=== PATIENT | female | born 1975 | race Caucasian/White ===

== ENCOUNTER 2017-01-08 15:07 | Emergency (ER) | payer BC, OTHER ==
[~2017-01-08] VITALS: Ht 167.6 cm; Wt 102.1 kg
[~2017-01-08 15:07] MED LIST: ACET-9525 PO; ALLO300T28 PO; BECL0.089 IH; FLUT1POW3 IH; FOLI1TAB19 PO; GABA-560 PO; HYDR-4452 PO; HYDR200T5 PO; IBUP-974 PO; IRON65TA10 PO; LEVO0.124 PO; LEVO750T51 PO; LISI10TA11 PO; METF850T PO; METO50TE14 PO; NITR100C7 PO; SPIMDI INH
--- NOTE | 2017-01-08 15:10 | NUR ---
Daniele wang in [facility] - 01/08/17 at 1701 by MEDDCV PATIENT AMBULATED TO ER BED 7.
[2017-01-08 15:13] VITALS: BP 126/99
[2017-01-08] MEDS ORDERED: NACL 0.9% 1,000 ML IV SCH (15:14)
[2017-01-08] MEDS ORDERED: FAMOTIDINE 20 MG/2 ML VIAL IVP ONE (15:15)
[2017-01-08] MEDS ORDERED: ONDANSETRON 4 MG/2 ML VIAL IVP ONE (15:15)
--- NOTE | 2017-01-08 15:15 | NUR ---
Daniele wang in [facility] - 01/08/17 at 1701 by MEDDCV Patient being evaluated by physician at bedside.
[2017-01-08 15:49] LABS: ANION GAP 12.9 (8-16); CARBON DIOXIDE 27.3 mmol/L (21-32); CREATININE 0.8 mg/dL (0.6-1.3); POTASSIUM 4.2 mmol/L (3.5-5.1)
[2017-01-08 15:55] LABS: ALBUMIN 4.1 g/dL (3.4-5.0); TOTAL BILIRUBIN 0.4 mg/dL (0.0-1.0); TOTAL PROTEIN, SERUM 7.3 g/dL (6.4-8.2)
[2017-01-08 15:58] LABS: BASOPHILS # (AUTO) 0.1 K/uL (0.00-0.22); BASOPHILS % (AUTO) 1.5 % (0.0-2.0); EOSINOPHILS # (AUTO) 0.1 K/uL (0-0.4); EOSINOPHILS % (AUTO) 1.6 % (0.0-4.0); HEMATOCRIT 36.1 % (36-48); HEMOGLOBIN 11.5 g/dL (12.0-16.0); LYMPHOCYTES # (AUTO) 1.4 K/uL (2.5-16.5); LYMPHOCYTES % (AUTO) 17.3 % (20.5-51.1); MEAN CORPUSCULAR HEMOGLOBIN 26 pg (27-31); MEAN CORPUSCULAR HGB CONC 32 g/dL (33-37); MEAN CORPUSCULAR VOLUME 83 fL (80-94); MONOCYTES # (AUTO) 0.2 K/uL (0.8-1.0); MONOCYTES % (AUTO) 2.3 % (1.7-9.3); NEUTROPHILS % (AUTO) 77.3 % (42.2-75.2); PLATELET COUNT (AUTO) 205 K/uL (140-450); RED BLOOD CELL COUNT(AUTO) 4.36 MIL/uL (4.20-5.40); WHITE BLOOD COUNT (AUTO) 7.8 K/uL (4.8-10.8)
[2017-01-08 15:59] LABS: APPEARANCE,URINE CLOUDY (CLEAR); BILIRUBIN,URINE NEGATIVE (NEGATIVE); BLOOD, URINE 3+ (NEGATIVE); LEUKOCYTE ESTERASE ,URINE NEGATIVE (NEGATIVE); NITRITE, URINE NEGATIVE (NEGATIVE); PROTEIN,URINE 2+ (NEGATIVE); UGLUCOSE NEGATIVE (NEGATIVE); UROBILINOGEN,URINE 0.2 EU/dL (0.2 - 1)
[2017-01-08 16:01] LABS: COLOR,URINE BLOODY (YELLOW)
[2017-01-08 16:02] LABS: BACTERIA,URINE RATE /HPF (None Seen); RBC,URINE TOO NUMEROUS TO COUN /HPF (0-5); SQUAMOUS EPITHELIAL CELL,UR 0-3 /LPF (0-3 (FEW)); WBC,URINE 0-3 /HPF (0-5)
--- NOTE | 2017-01-08 16:10 | NUR ---
PATIENT AMBULATED TO ER BED 7.
--- NOTE | 2017-01-08 16:15 | NUR ---
Patient being evaluated by physician at bedside.
--- NOTE | 2017-01-08 16:16 | NUR ---
41F BIB C/O ABDOMINAL PAIN X 4 QUADRANTS, SHARP, RADIATES TO MID BACK X 3 DAYS; ABDOMEN SOFT, PT STATES TENDER, ACTIVE BOWEL SOUNDS X 4 QUADRANTS; PT C/O NAUSEA TODAY, BUT DENIES VOMITING/DIARRHEA AT THIS TIME; A&OX4, PERRL, BL LUNG SOUNDS CLEAR, RR EVEN/UNLABORED, SKIN IS WARM/DRY/INTACT AT THIS TIME; HX: DM, HTN, ANEMIA, THYROID, RA, PANCREATITIS, CHF, FATTY LIVER. PT RESTING IN BED W/ HOB ELEVATED AND IN LOWEST POSITION; POSITIONED FOR COMFORT; ER MD MADE AWARE OF STATUS. WILL CONTINUE TO MONITOR.
--- NOTE | 2017-01-08 17:23 | NUR ---
PT TAKEN TO CT VIA W/C ACCOMPANIED BY OFFICE MACHINE PUNCH OPERATOR.
--- NOTE | 2017-01-08 17:49 | NUR ---
PT C/O ABDOMINAL PAIN 03/28 AT THIS TIME; ER MD DR. MANE NOTIFIED; VSS; RR EVEN/UNLABORED, WILL CONTINUE TO MONITOR.
[2017-01-08] MEDS ORDERED: HYDROmorphone 1 MG/ML AMP IVP ONE (17:50)
[2017-01-08 19:18] VITALS: BP 128/79
--- NOTE | 2017-01-08 19:18 | NUR ---
Patient discharged with v/s stable. Written and verbal after care instructions given and explained. Patient alert, oriented and verbalized understanding of instructions. Ambulatory with steady gait. All questions addressed prior to discharge. ID band removed. Patient advised to follow up with PMD THIS WK OR RETURN TO ER IF CONDITION WORSENS. Rx of ZOFRAN AND TYLENOL WITH CODEINE given. Patient educated on indication of medication including possible reaction and side effects. Opportunity to ask questions provided and answered.
== END 2017-01-08 19:18 | disposition home or self-care (01) ==
LOC: MED 15:07
DX: D27.1 Benign neoplasm of left ovary (principal); J45.909 Unspecified asthma, uncomplicated; I10 Essential (primary) hypertension; E11.9 Type 2 diabetes mellitus without complications; E03.9 Hypothyroidism, unspecified; M06.9 Rheumatoid arthritis, unspecified; Z88.0 Allergy status to penicillin; Z79.899 Other long term (current) drug therapy
CPT/HCPCS: 36415; 74176; 80053; 81001; 81025; 82150; 82948; 83690; 85025; 96361; 96374; 96375; 99285; J1170; J2405; J3490; J7030

== ENCOUNTER 2017-11-26 23:03 | Emergency (ER) | payer BC, OTHER ==
[~2017-11-26] VITALS: Ht 167.6 cm; Wt 108.9 kg
[~2017-11-26 23:03] MED LIST changes: +ACET-787 PO; -ACET-9525 PO; -ALLO300T28 PO; +ASPI81CT95 PO; +ATOR20TA40 PO; -BECL0.089 IH; +DOCU-299 PO; -FLUT1POW3 IH; -HYDR-4452 PO; -IBUP-974 PO; -IRON65TA10 PO; +LACT1.4C PO; -LEVO750T51 PO; +METO50TE PO; -METO50TE14 PO; +OSC500 PO; +POLY17PD46 PO; -SPIMDI INH
[2017-11-26 23:16] VITALS: BP 150/94
--- NOTE | 2017-11-26 23:45 | NUR ---
PT TAKEN TO BED 1
--- NOTE | 2017-11-26 23:45 | NUR ---
42 y/o f w/c/o Suddent onset of l upper chest pain and sob x 1999. pt states has ahd a cough x 1 mth not getting better, pt states has had any fever. pt also states norco 5 taken at 1999 for pain but pain not getting better. pt on monitor, NC on placed 2 lt. er md made aware.
[2017-11-27] MEDS ORDERED: oxyCODONE/APAP 5/325 MG 1 TAB TAB PO ONE (00:15)
[2017-11-27 00:50] LABS: BASOPHILS # (AUTO) 0.2 K/uL (0.00-0.22); BASOPHILS % (AUTO) 2.9 % (0.0-2.0); EOSINOPHILS # (AUTO) 0.2 K/uL (0-0.4); EOSINOPHILS % (AUTO) 3.6 % (0.0-4.0); HEMATOCRIT 43.1 % (36-48); HEMOGLOBIN 14.3 g/dL (12.0-16.0); LYMPHOCYTES # (AUTO) 1.4 K/uL (2.5-16.5); LYMPHOCYTES % (AUTO) 20.7 % (20.5-51.1); MEAN CORPUSCULAR HEMOGLOBIN 31 pg (27-31); MEAN CORPUSCULAR HGB CONC 33 g/dL (33-37); MEAN CORPUSCULAR VOLUME 93 fL (80-94); MONOCYTES # (AUTO) 0.8 K/uL (0.8-1.0); MONOCYTES % (AUTO) 12.8 % (1.7-9.3); PLATELET COUNT (AUTO) 163 K/uL (140-450); RED BLOOD CELL COUNT(AUTO) 4.65 MIL/uL (4.20-5.40); RED CELL DISTRIBUTION WIDTH 13.2 % (11.6-13.7); WHITE BLOOD COUNT (AUTO) 6.6 K/uL (4.8-10.8)
[2017-11-27 01:15] LABS: ANION GAP 12.9 (8-16); CREATININE 0.8 mg/dL (0.6-1.3); POTASSIUM 3.9 mmol/L (3.5-5.1)
[2017-11-27 01:21] LABS: TOTAL BILIRUBIN 0.7 mg/dL (0.0-1.0)
--- NOTE | 2017-11-27 01:31 | NUR ---
LAB CALLED FOR BNP VALUE OF BELOW 5
--- NOTE | 2017-11-27 01:35 | NUR ---
PT LYING IN BED, ON MONITOR STATES HER HAS SLIGHTLY DECREASED TO 7/10.
[2017-11-27 03:25] VITALS: BP 123/79
== END 2017-11-27 03:20 | disposition home or self-care (01) ==
LOC: MED 23:03
DX: M94.0 Chondrocostal junction syndrome [Tietze] (principal); R94.31 Abnormal electrocardiogram [ECG] [EKG]; J45.909 Unspecified asthma, uncomplicated; I50.9 Heart failure, unspecified; E11.9 Type 2 diabetes mellitus without complications; I10 Essential (primary) hypertension; E78.00 Pure hypercholesterolemia, unspecified; M06.9 Rheumatoid arthritis, unspecified; Z79.899 Other long term (current) drug therapy; Z79.82 Long term (current) use of aspirin; Z79.84 Long term (current) use of oral hypoglycemic drugs; Z88.0 Allergy status to penicillin
CPT/HCPCS: 36415; 71045; 80053; 81002; 81025; 83690; 83880; 84484; 85025; 93005; 99285

== ENCOUNTER 2018-02-03 15:16 | Emergency (ER) | payer BC, OTHER ==
[~2018-02-03] VITALS: Ht 167.6 cm; Wt 112.9 kg
[~2018-02-03 15:16] MED LIST changes: +METO-747 PO; -METO50TE PO
[2018-02-03 15:23] VITALS: BP 137/89
--- NOTE | 2018-02-03 15:30 | NUR ---
PT AMBULATES TO BED 6
--- NOTE | 2018-02-03 15:40 | NUR ---
42Y/F BIB SELF C/O MOUTH PAIN X 3 DAYS WITH NAUSEA AND DIFFICULTY SWALLOWING; DENIES V/D. PATIENT POSITIONED FOR COMFORT; HOB ELEVATED; BEDRAILS UP X2; BED DOWN. ER MD MADE AWARE OF PT STATUS.
[2018-02-03] MEDS ORDERED: HYDROcodone/APAP 5/325 MG 1 TAB TAB PO ONE (17:25)
[2018-02-03 18:32] LABS: BASOPHILS # (AUTO) 0.1 K/uL (0.00-0.22); BASOPHILS % (AUTO) 1.4 % (0.0-2.0); EOSINOPHILS # (AUTO) 0.1 K/uL (0-0.4); HEMOGLOBIN 15.3 g/dL (12.0-16.0); LYMPHOCYTES # (AUTO) 1.4 K/uL (2.5-16.5); MEAN CORPUSCULAR HEMOGLOBIN 32 pg (27-31); MEAN CORPUSCULAR HGB CONC 33 g/dL (33-37); MEAN CORPUSCULAR VOLUME 94.7 fL (80-94); MONOCYTES # (AUTO) 0.4 K/uL (0.8-1.0); MONOCYTES % (AUTO) 6.3 % (1.7-9.3); NEUTROPHILS % (AUTO) 70.3 % (42.2-75.2); PLATELET COUNT (AUTO) 168 K/uL (140-450); RED BLOOD CELL COUNT(AUTO) 4.86 MIL/uL (4.20-5.40); RED CELL DISTRIBUTION WIDTH 13.6 % (11.6-13.7); WHITE BLOOD COUNT (AUTO) 7.1 K/uL (4.8-10.8)
[2018-02-03 18:41] LABS: APPEARANCE,URINE CLEAR (CLEAR); BILIRUBIN,URINE NEGATIVE (NEGATIVE); BLOOD, URINE NEGATIVE (NEGATIVE); COLOR,URINE YELLOW (YELLOW); LEUKOCYTE ESTERASE ,URINE NEGATIVE (NEGATIVE); NITRITE, URINE NEGATIVE (NEGATIVE); UGLUCOSE NEGATIVE (NEGATIVE)
[2018-02-03 18:42] LABS: ANION GAP 13.8 (8-16); CREATININE 0.9 mg/dL (0.6-1.3); POTASSIUM 3.8 mmol/L (3.5-5.1)
[2018-02-03 18:48] LABS: ALBUMIN 4.6 g/dL (3.4-5.0)
[2018-02-03 19:27] VITALS: BP 133/88
--- NOTE | 2018-02-03 19:29 | NUR ---
Patient discharged with v/s stable. Written and verbal after care instructions given and explained. Patient alert, oriented and verbalized understanding of instructions. Ambulatory with steady gait. All questions addressed prior to discharge. ID band removed. Patient advised to follow up with PMD. Rx of DEXAMETHASONE, LIDOCAINE, CHLORHEXIDINE given. Patient educated on indication of medication including possible reaction and side effects. Opportunity to ask questions provided and answered.
== END 2018-02-03 19:29 | disposition home or self-care (01) ==
LOC: MED 15:16
DX: K12.2 Cellulitis and abscess of mouth (principal); M06.9 Rheumatoid arthritis, unspecified; G89.29 Other chronic pain; J45.909 Unspecified asthma, uncomplicated; I50.9 Heart failure, unspecified; E11.9 Type 2 diabetes mellitus without complications; I10 Essential (primary) hypertension; E07.9 Disorder of thyroid, unspecified; Z79.82 Long term (current) use of aspirin; Z79.84 Long term (current) use of oral hypoglycemic drugs; Z79.899 Other long term (current) drug therapy; Z88.0 Allergy status to penicillin
CPT/HCPCS: 36415; 71045; 71250; 80053; 81003; 81025; 85025; 85651; 86140; 87040; 99285; Q0092

== ENCOUNTER 2018-03-25 20:54 | Inpatient (IN) | payer BC, OTHER ==
[~2018-03-25] VITALS: Ht 167.6 cm; Wt 113.4 kg
[~2018-03-25 20:54] MED LIST changes: +ALEN70TA52 PO; +ESCI20TA PO; +FERR325E14 PO; +FLUT1POW3 IH; +MEX2.5; +OMEP20TC12 PO; +ONDA4TAB PO; +PRED10TA5 PO; +SPIMDI INH; +ZYL300 PO; +[UNRECOGNIZED DRUG - CODE] IV; +[UNRECOGNIZED DRUG - CODE] PO
[2018-03-25 20:58] VITALS: BP 108/85
--- NOTE | 2018-03-25 21:00 | NUR ---
TO BED # 9 AMBULATORY, REPORT GIVEN TO JACKSON SAMS.
--- NOTE | 2018-03-25 21:00 | NUR ---
42/F CAME IN W C/O RT SIDE CHEST PAIN, NONRADIAITING, NONPROVOKED X 3 DAYS. ALSO REPORTS SOB X 3 DAYS. ALL LUNG SOUNDS CBTA 18RR EVEN AND UNLABORED, SATS 99%. PT ALSO REPORTS LIZZY FLANK PAIN, DYSURIA AND FREQUENCY X 3 DAYS. DENIES HEMATURIA. PMH: FATTY LIVER, CHF, DM, HTN,
[2018-03-25] MEDS ORDERED: ASPIRIN 81 MG TAB.CHEW PO ONE (21:10)
[2018-03-25 21:59] LABS: BASOPHILS # (AUTO) 0.1 K/uL (0.00-0.22); BASOPHILS % (AUTO) 1.1 % (0.0-2.0); EOSINOPHILS # (AUTO) 0.2 K/uL (0-0.4); EOSINOPHILS % (AUTO) 2.5 % (0.0-4.0); HEMOGLOBIN 14.7 g/dL (12.0-16.0); LYMPHOCYTES # (AUTO) 2.3 K/uL (2.5-16.5); MEAN CORPUSCULAR HEMOGLOBIN 32 pg (27-31); MEAN CORPUSCULAR HGB CONC 33 g/dL (33-37); MONOCYTES # (AUTO) 0.6 K/uL (0.8-1.0); MONOCYTES % (AUTO) 6.9 % (1.7-9.3); NEUTROPHILS # (AUTO) 5.3 K/uL (1.8-7.7); NEUTROPHILS % (AUTO) 62.5 % (42.2-75.2); PLATELET COUNT (AUTO) 202 K/uL (140-450); RED BLOOD CELL COUNT(AUTO) 4.64 MIL/uL (4.20-5.40); RED CELL DISTRIBUTION WIDTH 14.8 % (11.6-13.7); WHITE BLOOD COUNT (AUTO) 8.5 K/uL (4.8-10.8)
[2018-03-25 22:17] LABS: ANION GAP 14.4 (8-16); CARBON DIOXIDE 26.4 mmol/L (21-32); POTASSIUM 3.8 mmol/L (3.5-5.1); PROTHROMBIN TIME 10.8 secs (10.8-13.4)
[2018-03-25 22:18] LABS: BILIRUBIN,URINE NEGATIVE (NEGATIVE); BLOOD, URINE 2+ (NEGATIVE); COLOR,URINE YELLOW (YELLOW); LEUKOCYTE ESTERASE ,URINE 1+ (NEGATIVE); NITRITE, URINE NEGATIVE (NEGATIVE); PH,URINE 5.5 (5.0-9.0); UGLUCOSE NEGATIVE (NEGATIVE)
[2018-03-25 22:22] LABS: ALBUMIN 4.3 g/dL (3.4-5.0); TOTAL BILIRUBIN 0.8 mg/dL (0.0-1.0)
[2018-03-25 22:24] LABS: APPEARANCE,URINE HAZY (CLEAR)
[2018-03-25 22:35] LABS: D-DIMER < 100 ng/ml (0-400)
[2018-03-25 23:51] LABS: CALCIUM OXALATE CRYSTALS,UR 30-50 /HPF (None Seen); RBC,URINE 3-10 (FEW) /HPF (0-5)
[2018-03-26] MEDS ORDERED: ONDANSETRON 4 MG/2 ML VIAL IM/IVP PRN (00:50)
[2018-03-26] MEDS ORDERED: DEXTROSE 50% 50 ML SYR IVP PRN (01:50)
[2018-03-26 02:00] VITALS: BP 131/80
[2018-03-26] MEDS ORDERED: MORPHINE SULFATE 2 MG/ML SYR IVP SCH (02:00)
[2018-03-26] MEDS: NACL 0.9% 1,000 ML IV SCH ×3 (02:00→17:30)
--- NOTE | 2018-03-26 02:00 | NUR ---
PATIENT ADMITTED TO THE UNIT FROM ER. PATIENT IS AWAKE, ALERT AND ORIENTED. AMBULATORY. NO SIGNS AND SYMPTOMS OF DISTRESS NOTED. IV SITE NOTED ON LEFT HAND, SALINE LOCKED. VITAL SIGNS STABLE. MRSA SAMPLE TAKEN. PLAN OF CARE DISCUSSED WITH PATIENT. PATIENT VERBALIZED UNDERSTANDING. BED IN LOWEST POSITION, SIDE RAILS UP AND CALL LIGHT WITHIN REACH. WILL CONTINUE TO MONITOR.
--- NOTE | 2018-03-26 02:07 | NUR ---
Patient will be admitted to care of DR NAJERA. Admited to TELE. Will go to room 112B. Belongings list completed. Report to LATRELL CRUZ.
[2018-03-26] MEDS ORDERED: cefTRIAXone 1,000 MG VIAL ONE (02:11)
[2018-03-26 02:56] LABS: BARBITURATE, URINE NEG. ng/ml (NEG <=200); BENZODIAZEPINE, URINE NEG. ng/mL (NEG <=200); CANNABINOID, URINE POS. ng/mL (NEG <=50); COCAINE, URINE NEG. ng/mL (NEG <=300); OPIATE, URINE NEG. ng/mL (NEG <=2000); PHENCYCLIDINE SCREEN,URINE NEG. ng/mL (NEG <=25)
[2018-03-26] MEDS ORDERED: METOPROLOL 25 MG TAB PO SCH (03:00)
--- NOTE | 2018-03-26 03:15 | NUR ---
CHECKED ON PATIENT. PATIENT IS ASLEEP. NO SIGNS AND SYMPTOMS OF DISTRESS NOTED. BREATHING EVEN AND UNLABORED. WILL CONTINUE TO MONITOR
[2018-03-26 04:00] VITALS: BP 121/74
[2018-03-26] MEDS: LEVOTHYROXINE 0.1 MG, LEVOTHYROXINE 0.025 MG PO SCH ×2 (05:48)
[2018-03-26] MEDS: BLOOD GLUCOSE MONITORING 1 DEV DEV FS SCH ×4 (05:50→20:38)
[2018-03-26] MEDS: MORPHINE SULFATE 2 MG/ML SYR IVP PRN ×2 (06:00→11:30)
--- NOTE | 2018-03-26 06:40 | NUR ---
PATIENT TAKEN TO RADIOLOGY FOR CT
[2018-03-26 07:05] LABS: BASOPHILS # (AUTO) 0.2 K/uL (0.00-0.22); BASOPHILS % (AUTO) 2.2 % (0.0-2.0); EOSINOPHILS # (AUTO) 0.3 K/uL (0-0.4); EOSINOPHILS % (AUTO) 3.5 % (0.0-4.0); HEMATOCRIT 41.3 % (36-48); HEMOGLOBIN 13.4 g/dL (12.0-16.0); LYMPHOCYTES # (AUTO) 2.4 K/uL (2.5-16.5); LYMPHOCYTES % (AUTO) 31.8 % (20.5-51.1); MEAN CORPUSCULAR HEMOGLOBIN 32 pg (27-31); MEAN CORPUSCULAR HGB CONC 33 g/dL (33-37); MEAN CORPUSCULAR VOLUME 97.5 fL (80-94); MONOCYTES # (AUTO) 0.6 K/uL (0.8-1.0); MONOCYTES % (AUTO) 7.4 % (1.7-9.3); NEUTROPHILS # (AUTO) 4.2 K/uL (1.8-7.7); NEUTROPHILS % (AUTO) 55.1 % (42.2-75.2); PLATELET COUNT (AUTO) 165 K/uL (140-450); RED BLOOD CELL COUNT(AUTO) 4.23 MIL/uL (4.20-5.40); RED CELL DISTRIBUTION WIDTH 14.5 % (11.6-13.7); WHITE BLOOD COUNT (AUTO) 7.6 K/uL (4.8-10.8)
[2018-03-26 07:08] LABS: ANION GAP 11.7 (8-16); CARBON DIOXIDE 27.9 mmol/L (21-32); CREATININE 0.9 mg/dL (0.6-1.3); POTASSIUM 3.6 mmol/L (3.5-5.1)
--- NOTE | 2018-03-26 07:15 | NUR ---
PATIENT RETURNED FROM RADIOLOGY
--- NOTE | 2018-03-26 07:18 | NUR ---
PATIENT REPORT GIVEN TO MORNING NURSE AT BEDSIDE FOR CONTINUITY OF CARE. PATIENT IS IN STABLE CONDITION
[2018-03-26 07:21] LABS: MAGNESIUM 1.7 mg/dL (1.8-2.4); PHOSPHORUS 4.4 mg/dL (2.5-4.9)
--- NOTE | 2018-03-26 07:30 | NUR ---
RECEIVED PT REPORT FROM CLOTH DYEING RANGE TENDER RN. PT IS AWAKE, ALERT AND ORIENTEDX4. AMBULATORY. NO SIGNS AND SYMPTOMS OF DISTRESS NOTED. IV SITE NOTED ON LEFT HAND, 20G, INFUSING WELL, ASYMPTOMATIC. VITAL SIGNS TAKEN. PLAN OF CARE DISCUSSED. PT VERBALIZED UNDERSTANDING. BED IN LOWEST POSITION, SIDE RAILS UP AND CALL LIGHT WITHIN REACH. WILL CONTINUE TO MONITOR.
[2018-03-26 08:00] VITALS: BP 116/69
[2018-03-26] MEDS ORDERED: NON-FORMULARY ITEM (Aspirin 81 MG) PO SCH (09:00)
[2018-03-26] MEDS ORDERED: NON-FORMULARY ITEM (Levothyroxine Sodium* (Synthroid*) 0.125 MG) PO SCH (09:00)
[2018-03-26] MEDS: POLYETHYLENE GLYCOL 17 GM/PKT PO SCH ×2 (09:00→09:41)
[2018-03-26] MEDS ORDERED: NON-FORMULARY ITEM (Atorvastatin Calcium 20 MG) PO SCH (09:00)
[2018-03-26] MEDS ORDERED: METHOTREXATE 2.5 MG TAB PO SCH (09:00)
[2018-03-26] MEDS ORDERED: TAMSULOSIN 0.4 MG CAP PO SCH (09:16)
[2018-03-26] MEDS: ECOTRIN 81 MG TABEC PO SCH (09:39)
[2018-03-26] MEDS: FOLIC ACID 1 MG TAB PO SCH (09:40)
[2018-03-26] MEDS: LACTOBACILLUS RHAMNOSUS GG 1 EACH CAP PO SCH (09:40)
[2018-03-26] MEDS: predniSONE 10 MG TAB PO SCH (09:40)
[2018-03-26] MEDS: metFORMIN 850 MG TAB PO SCH ×2 (09:41→20:53)
[2018-03-26] MEDS: MAGNESIUM OXIDE 400 MG TAB PO SCH ×2 (09:41→20:53)
[2018-03-26] MEDS: ESCITALOPRAM 20 MG TAB PO SCH (09:41)
[2018-03-26] MEDS: METOPROLOL SUCCINATE 50 MG TABER PO SCH (09:42)
[2018-03-26] MEDS: HYDROXYCHLOROQUINE 200 MG TAB PO SCH ×2 (09:42→20:53)
[2018-03-26] MEDS: PANTOPRAZOLE 40 MG TABEC PO SCH (09:42)
[2018-03-26] MEDS: ALLOPURINOL 300 MG TAB PO SCH (09:43)
--- NOTE | 2018-03-26 10:20 | NUR ---
PT BROUGHT MEDS FROM HOME. REPORTED TO DR RHEA. MUNROE CHANGED THE DOSAGE AND FREQ OF THE MEDS. Addendum: 03/26/18 at 1445 by Og Carcamo RN FOSAMAX, AND METHOTREXATE
[2018-03-26 12:00] VITALS: BP 120/72
--- NOTE | 2018-03-26 13:00 | NUR ---
K PAD APPLIED TO PT'S BACK
[2018-03-26] MEDS: BACLOFEN 10 MG TAB PO SCH ×2 (13:05→17:39)
--- NOTE | 2018-03-26 15:30 | NUR ---
TURNED K PAD OFF PER PT'S REQUEST.
[2018-03-26 16:00] VITALS: BP 104/84
[2018-03-26] MEDS: INSULIN LISPRO SLIDING SCALE 100 UNITS/ML VIAL SUBQ PRN ×2 (17:42→20:50)
--- NOTE | 2018-03-26 19:20 | NUR ---
ENDORSED PT TO SOIL AND PLANT SCIENTIST RN. PT IS IN STABLE CONDITION
--- NOTE | 2018-03-26 19:21 | NUR ---
PATIENT REPORT RECEIVED FROM MORNING NURSE AT BEDSIDE. PATIENT IS AWAKE, ALERT AND ORIENTED. NO SIGNS AND SYMPTOMS OF DISTRESS NOTED. NO COMPLAINTS OF PAIN AT THIS TIME. IV SITE NOTED ON LEFT HAND, IV FLUID INFUSING WELL. PATIENT'S FAMILY AT BEDSIDE. PLAN OF CARE DISCUSSED WITH PATIENT. PATIENT VERBALIZED UNDERSTANDING. BED IN LOWEST POSITION, SIDE RAILS UP AND CALL LIGHT WITHIN REACH. WILL CONTINUE TO MONITOR
[2018-03-26 20:00] VITALS: BP 114/60
[2018-03-26] MEDS: HYDROcodone/APAP 7.5/325 MG 1 TAB PO PRN (20:58)
[2018-03-26] MEDS ORDERED: GABAPENTIN 300 MG PO SCH (21:00)
[2018-03-26] MEDS ORDERED: GABAPENTIN 300 MG CAP PO SCH (21:00)
--- NOTE | 2018-03-26 21:15 | NUR ---
PATIENT REPORT GIVEN TO CHARGE NURSE FILIPE. PATIENT IS IN STABLE CONDITION
--- NOTE | 2018-03-26 21:37 | NUR ---
RECEIVED REPORT FROM NANCY SAMS.PT IS IN STABLE CONDITION.HAD PAIN AND NORCO PO GIVEN BY NANCY EARLIER.WILL REASSESS LATER.
[2018-03-27] VITALS: BP 126/62
--- NOTE | 2018-03-27 | NUR ---
VS STABLE.HR IS SR.SLEEPING W/O S/S OF ANY DISTRESS.
[2018-03-27] MEDS: NACL 0.9% 1,000 ML IV SCH ×2 (00:41→10:10)
[2018-03-27 04:00] VITALS: BP 122/60
--- NOTE | 2018-03-27 04:00 | NUR ---
SLEEPING.IVF IS IN PROGRESS.NO DISTRESS NOTED AT PRESENT TIME.CALL LIGHT WITHIN REACH.HR IS SR.
[2018-03-27] MEDS: LEVOTHYROXINE 0.1 MG, LEVOTHYROXINE 0.025 MG PO SCH ×2 (05:54)
[2018-03-27] MEDS: BLOOD GLUCOSE MONITORING 1 DEV DEV FS SCH ×2 (05:54→11:32)
[2018-03-27] MEDS ORDERED: METHOTREXATE 2.5 MG TAB PO SCH (06:00)
[2018-03-27] MEDS: HYDROcodone/APAP 7.5/325 MG 1 TAB PO PRN (06:00)
[2018-03-27] MEDS ORDERED: ALENDRONATE SODIUM 70 MG TAB PO SCH (06:00)
--- NOTE | 2018-03-27 06:42 | NUR ---
HAD C/O PAIN PO MED GIVEN ALSO DUE MEDS GIVEN.PT TLERATED WELL.IVF IS IN PROGRESS.CALL LIGHT IN REACH.HEAT PAD IS UNDER HER BACK.
[2018-03-27 07:17] LABS: BASOPHILS # (AUTO) 0.1 K/uL (0.00-0.22); BASOPHILS % (AUTO) 1.2 % (0.0-2.0); EOSINOPHILS # (AUTO) 0.2 K/uL (0-0.4); EOSINOPHILS % (AUTO) 3.7 % (0.0-4.0); HEMATOCRIT 39.5 % (36-48); LYMPHOCYTES # (AUTO) 1.7 K/uL (2.5-16.5); LYMPHOCYTES % (AUTO) 28.2 % (20.5-51.1); MEAN CORPUSCULAR HEMOGLOBIN 32 pg (27-31); MEAN CORPUSCULAR HGB CONC 33 g/dL (33-37); MONOCYTES # (AUTO) 0.4 K/uL (0.8-1.0); NEUTROPHILS # (AUTO) 3.6 K/uL (1.8-7.7); NEUTROPHILS % (AUTO) 59.9 % (42.2-75.2); PLATELET COUNT (AUTO) 144 K/uL (140-450); RED BLOOD CELL COUNT(AUTO) 4.08 MIL/uL (4.20-5.40); RED CELL DISTRIBUTION WIDTH 14.5 % (11.6-13.7)
--- NOTE | 2018-03-27 07:30 | NUR ---
RECEIVED PT REPORT FROM CHILDREN'S LITERATURE PROFESSOR RN. PT IS SLEEPING, EASILY AROUSED BY NAME, ORIENTEDX4. AMBULATORY. NO SIGNS AND SYMPTOMS OF DISTRESS NOTED. IV SITE NOTED ON LEFT HAND, 20G, INFUSING WELL, ASYMPTOMATIC. VITAL SIGNS TAKEN. PLAN OF CARE DISCUSSED. PT VERBALIZED UNDERSTANDING. BED IN LOWEST POSITION, SIDE RAILS UP AND CALL LIGHT WITHIN REACH. WILL CONTINUE TO MONITOR.
[2018-03-27 07:54] LABS: MAGNESIUM 1.7 mg/dL (1.8-2.4); PHOSPHORUS 3.5 mg/dL (2.5-4.9)
[2018-03-27 08:00] VITALS: BP 125/59
[2018-03-27 08:01] LABS: ANION GAP 12.8 (8-16); CREATININE 0.8 mg/dL (0.6-1.3); POTASSIUM 3.8 mmol/L (3.5-5.1)
[2018-03-27] MEDS ORDERED: TAMSULOSIN 0.4 MG CAP PO SCH (08:30)
[2018-03-27] MEDS: ECOTRIN 81 MG TABEC PO SCH (08:52)
[2018-03-27] MEDS: metFORMIN 850 MG TAB PO SCH (08:52)
[2018-03-27] MEDS: LACTOBACILLUS RHAMNOSUS GG 1 EACH CAP PO SCH (08:52)
[2018-03-27] MEDS: HYDROXYCHLOROQUINE 200 MG TAB PO SCH (08:53)
[2018-03-27] MEDS: ESCITALOPRAM 20 MG TAB PO SCH (08:53)
[2018-03-27] MEDS: MAGNESIUM OXIDE 400 MG TAB PO SCH (08:53)
[2018-03-27] MEDS: METOPROLOL SUCCINATE 50 MG TABER PO SCH (08:54)
[2018-03-27] MEDS: POLYETHYLENE GLYCOL 17 GM/PKT PO SCH (08:54)
[2018-03-27] MEDS: predniSONE 10 MG TAB PO SCH (08:54)
[2018-03-27] MEDS: FOLIC ACID 1 MG TAB PO SCH (08:54)
[2018-03-27] MEDS: BACLOFEN 10 MG TAB PO SCH (08:54)
[2018-03-27] MEDS: PANTOPRAZOLE 40 MG TABEC PO SCH (08:54)
[2018-03-27] MEDS: ALLOPURINOL 300 MG TAB PO SCH (08:55)
--- NOTE | 2018-03-27 09:20 | NUR ---
PT REFUSED MIRALAX, OFFERED PT WITH PRUNE JUICE. PT AGREED.
[2018-03-27] MEDS ORDERED: CARI350T PO (09:57)
[2018-03-27] MEDS ORDERED: LEVO750T2 PO (10:01)
--- NOTE | 2018-03-27 10:17 | NUR ---
PATIENT HAS BEEN SCREENED AND CATEGORIZED HIGH NUTRITION RISK. PATIENT WILL BE SEEN WITHIN 1-2 DAYS OF ADMISSION. 03/27/[address]
--- NOTE | 2018-03-27 10:35 | NUR ---
PT CAME OUT OF THE RESTROOM AND STATED SHE HAD A BM. BED LINENS WAS CHANGED. NO S/S OF ACUTE DISTRESS NOTED.
[2018-03-27 12:00] VITALS: BP 135/72
--- NOTE | 2018-03-27 12:05 | NUR ---
PT WAS DISCHARGED PER MD ORDER. DISCHARGE INSTRUCTION AND MEDICATION TEACHING PROVIDED. PT VERBALIZED UNDERSTANDING. IV CATH DC'D, TIP INTACT, PRESSURE APPLIED. PT SIGNED ALL DISCHARGE PAPER, LEFT WITH ALL HER BELONGINGS AND IN STABLE CONDITION. PT WALKED TO LOBBY WITH JULISA.
--- NOTE | 2018-03-27 15:27 | NUR ---
ATTEMPTED TO FAX CLINICAL REVIEW TO [facility] AT [phone].
[2018-03-28 06:21] LABS: T4 (THYROXINE) 7.3 ug/dL (4.5-12.0)
[2018-03-28 09:22] LABS: HEPATITIS A ANTIBODY IGM Negative (Negative); HEPATITIS B CORE AB TOTAL Negative (Negative); HEPATITIS B SURFACE ANTIBODY Non Reactive (.); HEPATITIS B SURFACE ANTIGEN Negative (Negative)
[2018-03-30 15:21] LABS: CHOL/HDL RATIO 3.7 (1-4.5); MAGNESIUM 1.9 mg/dL (1.8-2.4); PHOSPHORUS 4.8 mg/dL (2.5-4.9); THYROID STIMULATING HORMONE 0.24 uIU/mL (0.34-3.74)
== END 2018-03-27 12:05 | disposition home or self-care (01) | DRG 205 ==
LOC: MED 20:54 → MTU 03-26 00:50
PROVIDERS: ADMIT General Practice; ATTEND General Practice
DX: M94.0 Chondrocostal junction syndrome [Tietze] (principal); E43 Unspecified severe protein-calorie malnutrition; J18.9 Pneumonia, unspecified organism; N39.0 Urinary tract infection, site not specified; Z68.41 Body mass index [BMI] 40.0-44.9, adult; D68.59 Other primary thrombophilia; E11.65 Type 2 diabetes mellitus with hyperglycemia; E03.9 Hypothyroidism, unspecified; E66.9 Obesity, unspecified; Z88.0 Allergy status to penicillin; J45.909 Unspecified asthma, uncomplicated; M81.0 Age-related osteoporosis without current pathological fracture; Z98.51 Tubal ligation status; Z90.722 Acquired absence of ovaries, bilateral; Z83.3 Family history of diabetes mellitus; Z82.49 Family history of ischemic heart disease and other diseases of the circulatory system; E11.40 Type 2 diabetes mellitus with diabetic neuropathy, unspecified; R74.0 Nonspecific elevation of levels of transaminase and lactic acid dehydrogenase [LDH]; K57.90 Diverticulosis of intestine, part unspecified, without perforation or abscess without bleeding; M06.9 Rheumatoid arthritis, unspecified; F32.9 Major depressive disorder, single episode, unspecified; E78.5 Hyperlipidemia, unspecified; E83.42 Hypomagnesemia; R31.9 Hematuria, unspecified; I10 Essential (primary) hypertension; I50.9 Heart failure, unspecified
CPT/HCPCS: 36415; 71045; 71250; 74150; 76770; 80048; 80053; 80305; 81001; 81025; 82948; 83036; 83690; 83735; 83880; 84100; 84436; 84443; 84479; 84484; 85025; 85379; 85610; 85730; 86704; 86706; 86708; 86709; 86803; 87081; 87086; 87340; 93005; 99285; J0696; J1815; J2270; J7030; J7060; J7512; J8610; Q0092

== ENCOUNTER 2018-10-26 21:45 | Emergency (ER) | payer BC, OTHER ==
[~2018-10-26] VITALS: Ht 167.6 cm; Wt 111.6 kg
[~2018-10-26 21:45] MED LIST changes: -ALEN70TA52 PO; +ALEN70TA9 PO; -GABA-560 PO; -NITR100C7 PO; -[UNRECOGNIZED DRUG - CODE] IV; -[UNRECOGNIZED DRUG - CODE] PO
[2018-10-26 21:48] VITALS: BP 122/68
--- NOTE | 2018-10-26 21:51 | NUR ---
TO LOBBY A/W BED , LIV PRIEST NOTED
--- NOTE | 2018-10-26 23:02 | NUR ---
PT AMBULATED TO ER BED 03
--- NOTE | 2018-10-26 23:12 | NUR ---
PT BIB FAMILY FOR ABD PAIN AND PAIN AND PAINFULL URINATION X2 DAYS. PT REPORTS RLQ PAIN AT 8/10 THAT RADIATES TO R SIDE AND LOWER BACK ALONG WITH BURNING URNATION, URIN FREQUENCY, AND HAMATURIA. PT ALSO REPORTS NAUSEA. PT DENIES FEVER OR DIARRHEA. ER MD TO SEE PT. SIDE RAILS UP X2, HOB ELEVATED, BED IN LOWEST POSITION. WILL CONTINUE TO MONITOR. MEDHX:DMII, RA, HTN, HYPOTHYROIDISM, HF Addendum: 10/26/18 at 2322 by LALITO PT ABD IS SOFT, TENDER TO TOUCH IN RLQ, WITH BOWEL SOUNDS ACTIVE X4 QUADRANTS.
[2018-10-27] MEDS ORDERED: KETOROLAC 60 MG/2 ML VIAL IM ONE (01:00)
[2018-10-27 01:40] VITALS: BP 112/51
--- NOTE | 2018-10-27 01:41 | NUR ---
Patient discharged with v/s stable. Written and verbal after care instructions given and explained. Patient alert, oriented and verbalized understanding of instructions. Ambulatory with steady gait. All questions addressed prior to discharge. ID band removed. Patient advised to follow up with PMD. Rx of MOTRIN, PYRIDIUM, CIPRO given. Patient educated on indication of medication including possible reaction and side effects. Opportunity to ask questions provided and answered.
== END 2018-10-27 01:40 | disposition home or self-care (01) ==
LOC: MED 21:45
DX: N39.0 Urinary tract infection, site not specified (principal); J45.909 Unspecified asthma, uncomplicated; I10 Essential (primary) hypertension; E11.9 Type 2 diabetes mellitus without complications; E07.9 Disorder of thyroid, unspecified; Z88.0 Allergy status to penicillin; Z90.49 Acquired absence of other specified parts of digestive tract
CPT/HCPCS: 81002; 96372; 99283; J1885

== ENCOUNTER 2018-11-19 22:09 | Emergency (ER) | payer BC, OTHER ==
[~2018-11-19] VITALS: Ht 167.6 cm; Wt 113.2 kg
[2018-11-19 22:13] VITALS: BP 110/85
--- NOTE | 2018-11-19 22:24 | NUR ---
PT AMBULATED TO THE RESTROOM AND THEN SENT TO [facility]
[2018-11-19 23:58] LABS: BASOPHILS # (AUTO) 0.1 K/uL (0.00-0.22); BASOPHILS % (AUTO) 1.3 % (0.0-2.0); EOSINOPHILS # (AUTO) 0.3 K/uL (0-0.4); EOSINOPHILS % (AUTO) 2.7 % (0.0-4.0); HEMOGLOBIN 13.4 g/dL (12.0-16.0); LYMPHOCYTES # (AUTO) 3.1 K/uL (2.5-16.5); LYMPHOCYTES % (AUTO) 27.8 % (20.5-51.1); MEAN CORPUSCULAR HEMOGLOBIN 28 pg (27-31); MEAN CORPUSCULAR HGB CONC 33 g/dL (33-37); MEAN CORPUSCULAR VOLUME 86.8 fL (80-94); MONOCYTES # (AUTO) 0.8 K/uL (0.8-1.0); MONOCYTES % (AUTO) 6.9 % (1.7-9.3); NEUTROPHILS # (AUTO) 6.9 K/uL (1.8-7.7); NEUTROPHILS % (AUTO) 61.3 % (42.2-75.2); PLATELET COUNT (AUTO) 202 K/uL (140-450); RED BLOOD CELL COUNT(AUTO) 4.72 MIL/uL (4.20-5.40); RED CELL DISTRIBUTION WIDTH 15.7 % (11.6-13.7); WHITE BLOOD COUNT (AUTO) 11.3 K/uL (4.8-10.8)
[2018-11-20 00:08] LABS: ANION GAP 14.9 (8-16); CARBON DIOXIDE 27.2 mmol/L (21-32); CREATININE 1.1 mg/dL (0.6-1.3); POTASSIUM 4.1 mmol/L (3.5-5.1)
[2018-11-20 00:09] LABS: APPEARANCE,URINE CLOUDY (CLEAR); BILIRUBIN,URINE 1+ (NEGATIVE); BLOOD, URINE 3+ (NEGATIVE); COLOR,URINE RED (YELLOW); LEUKOCYTE ESTERASE ,URINE TRACE (NEGATIVE); NITRITE, URINE POSITIVE (NEGATIVE); PH,URINE 5.5 (5.0-9.0); UGLUCOSE TRACE (NEGATIVE)
[2018-11-20 00:14] LABS: ALBUMIN 3.9 g/dL (3.4-5.0); TOTAL BILIRUBIN 0.5 mg/dL (0.0-1.0)
[2018-11-20 00:22] LABS: CALCIUM OXALATE CRYSTALS,UR 0-10 /HPF (None Seen); RBC,URINE TOO NUMEROUS TO COUN /HPF (0-5); WBC,URINE 0-5 /HPF (0-5)
--- NOTE | 2018-11-20 00:38 | NUR ---
PT WAS WHEEL CHAIR TO BED #11
--- NOTE | 2018-11-20 00:38 | NUR ---
PT RETURNED FROM CT BY WHEEL CHAIR
--- NOTE | 2018-11-20 00:49 | NUR ---
PT BIB SELF FOR ABD PAIN/BACK PAIN/SUPRAPUBIC PAIN X3 HOURS. PT REPORTS SHARP NEEDLE LIKE PAIN AT 10/10 THAT STARTS SUPRABUBIC AND RADIATES TO ABD AND R FLANK. PT REPORTS PAINFUL URINATION AND HEMATURIA THAT STARTED YESTERDAY. VSS. ER MD TO SEE PT. WILL CONTINUE TO MONITOR. MEDHX:RA, HYPOTHYROIDISM, DM II, HTN, CHF, PANCREATITIS
[2018-11-20] MEDS ORDERED: KETOROLAC 30 MG/ML VIAL IVP ONE (01:30)
[2018-11-20] MEDS ORDERED: NACL 0.9% 1,000 ML IV ONE (01:30)
--- NOTE | 2018-11-20 03:02 | NUR ---
PT RESTING IN BED, VSS. PT REPORTS THAT PAIN HAS DECREASED TO 3/10. NS BOLUS RUNNING AT THIS TIME, PT TOLERATING WELL, NO ADVENTITIOUS BREATH SOUNDS.
[2018-11-20] MEDS ORDERED: MORPHINE SULFATE 4 MG/ML SYR IVP ONE (03:30)
[2018-11-20] MEDS ORDERED: MORPHINE SULFATE 2 MG/ML SYR ONE (03:44)
[2018-11-20 04:10] VITALS: BP 107/60
--- NOTE | 2018-11-20 04:10 | NUR ---
Patient discharged with v/s stable. Written and verbal after care instructions given and explained. Patient alert, oriented and verbalized understanding of instructions. Ambulatory with steady gait. All questions addressed prior to discharge. ID band removed. Patient advised to follow up with PMD. Rx of FLOMAX, NORCO, AND ZOFRAN given. Patient educated on indication of medication including possible reaction and side effects. Opportunity to ask questions provided and answered.
== END 2018-11-20 04:10 | disposition home or self-care (01) ==
LOC: MED 22:09
DX: N20.0 Calculus of kidney (principal); N39.0 Urinary tract infection, site not specified; I10 Essential (primary) hypertension; E11.9 Type 2 diabetes mellitus without complications; J45.909 Unspecified asthma, uncomplicated; Z88.0 Allergy status to penicillin; Z79.1 Long term (current) use of non-steroidal anti-inflammatories (NSAID); Z79.84 Long term (current) use of oral hypoglycemic drugs; Z90.49 Acquired absence of other specified parts of digestive tract; Z87.442 Personal history of urinary calculi
CPT/HCPCS: 36415; 74176; 80053; 81001; 81025; 82150; 83690; 85025; 87086; 96374; 96375; 99284; J1885; J2270; J7030

== ENCOUNTER 2018-12-19 15:58 | Emergency (ER) | payer BC, OTHER ==
[~2018-12-19] VITALS: Ht 167.6 cm; Wt 116.1 kg
[2018-12-19 16:05] VITALS: BP 142/82
--- NOTE | 2018-12-19 16:15 | NUR ---
BIB SELF AAOX 4 C/O PAINFUL PERINEUM WITH BURNING, FREQUENT URINATION SINCE TUESDAY. PER PT SHE APPLIED CREAM WITH NO RELIEF. DENIES DISCHARGE. DENIES TRAUMA OR INJURY. PT STATES NO FOUL ODOR UPON URINATING. NO N/V/D. HOB UP. BED SIDE RAILS UP X1. ON LOW BED POSITION, LOCKED. ER MADE AWARE OF PT STATUS.
--- NOTE | 2018-12-19 16:34 | NUR ---
Female Agricultural Research Technologist accompanied female patient for Pelvic Exam.
[2018-12-19 17:02] LABS: APPEARANCE,URINE CLEAR (CLEAR); BILIRUBIN,URINE NEGATIVE (NEGATIVE); BLOOD, URINE 1+ (NEGATIVE); COLOR,URINE YELLOW (YELLOW); LEUKOCYTE ESTERASE ,URINE TRACE (NEGATIVE); NITRITE, URINE POSITIVE (NEGATIVE); UGLUCOSE 3+ (NEGATIVE)
[2018-12-19 17:03] VITALS: BP 132/75
--- NOTE | 2018-12-19 17:05 | NUR ---
Patient discharged with v/s stable. Written and verbal after care instructions given and explained. Patient alert, oriented and verbalized understanding of instructions. Ambulatory with steady gait. All questions addressed prior to discharge. ID band removed. Patient advised to follow up with PMD. Rx of CLOTRIMAZOLE,CEPHALEXIN,DIFLUCAN given. Patient educated on indication of medication including possible reaction and side effects. Opportunity to ask questions provided and answered.
[2018-12-19 17:23] LABS: WBC,URINE >25 (MANY) /HPF (0-5)
== END 2018-12-19 17:05 | disposition home or self-care (01) ==
LOC: MED 15:58
DX: N76.0 Acute vaginitis (principal); N39.0 Urinary tract infection, site not specified; E11.9 Type 2 diabetes mellitus without complications; J45.909 Unspecified asthma, uncomplicated; I11.0 Hypertensive heart disease with heart failure; I50.9 Heart failure, unspecified; E07.9 Disorder of thyroid, unspecified; M06.9 Rheumatoid arthritis, unspecified; Z90.49 Acquired absence of other specified parts of digestive tract; Z98.890 Other specified postprocedural states; Z79.82 Long term (current) use of aspirin; Z79.891 Long term (current) use of opiate analgesic; Z79.84 Long term (current) use of oral hypoglycemic drugs; Z88.0 Allergy status to penicillin
CPT/HCPCS: 81001; 81025; 82948; 87086; 99283

== ENCOUNTER 2019-11-09 20:32 | Emergency (ER) | payer BC, OTHER ==
[~2019-11-09] VITALS: Ht 167.6 cm; Wt 111.6 kg
[2019-11-09 20:33] VITALS: BP 120/76
--- NOTE | 2019-11-09 20:36 | NUR ---
TO LOBBY A/W BED AMBULATORY
--- NOTE | 2019-11-09 21:06 | NUR ---
PT AMBULATED TO BED 06
--- NOTE | 2019-11-09 21:15 | NUR ---
PT 44 Y/O FEMALE BIB SELF FOR C/O CHEST PAIN PROVOKED BY COUGH. PT AAO X4. PT SATES PAIN IS 9/10 NON RADIATING AN BURNING. RESPIRATIONS ARE EVEN AND UNLABORED. PT ON NC 2L/MIN SP02 97%. PT ALSO HAS C/O 9/10 GILMORE X 1 DAY. SKIN IS WARM AND DRY TO TOUCH. DENIES N/V/D. BS ACTIVE X 4. ABD IS SOFT, ROUND AND NON-TENDER. CMS INACT. CAP REFIL <3. PT CONTINUES ON MONITOR. BED LOCKED AND IN LOWEST POSITION. MEDHX: DM, HTN, CHF, RA. ALLERGIES: LEVAQUIN, PENECILLIN
--- NOTE | 2019-11-09 21:30 | NUR ---
DR. MALONEY AT BEDSIDE.
[2019-11-09] MEDS ORDERED: KETOROLAC 30 MG/ML VIAL IM ONE (22:05)
--- NOTE | 2019-11-09 22:16 | NUR ---
PT AAO X4. PT RESTING IN BED RESPIRATIONS ARE EVEN AND UNLABORED. PT LOOKING AT PHONE. PT ON MONITOR. VSS. SKIN IS WARM AND DRY TO TOUCH. BED LOCKED AND IN LOWEST POSITION.
[2019-11-09 22:33] LABS: BASOPHILS # (AUTO) 0.2 K/uL (0.00-0.22); BASOPHILS % (AUTO) 2.5 % (0.0-2.0); EOSINOPHILS # (AUTO) 0.3 K/uL (0-0.4); EOSINOPHILS % (AUTO) 3.6 % (0.0-4.0); HEMOGLOBIN 10.8 g/dL (12.0-16.0); LYMPHOCYTES % (AUTO) 23.5 % (20.5-51.1); MEAN CORPUSCULAR HEMOGLOBIN 24 pg (27-31); MEAN CORPUSCULAR HGB CONC 32 g/dL (33-37); MEAN CORPUSCULAR VOLUME 76.6 fL (80-94); MONOCYTES # (AUTO) 0.6 K/uL (0.8-1.0); MONOCYTES % (AUTO) 7.6 % (1.7-9.3); NEUTROPHILS # (AUTO) 5.3 K/uL (1.8-7.7); NEUTROPHILS % (AUTO) 62.8 % (42.2-75.2); PLATELET COUNT (AUTO) 236 K/uL (140-450); RED BLOOD CELL COUNT(AUTO) 4.44 MIL/uL (4.20-5.40); RED CELL DISTRIBUTION WIDTH 17.6 % (11.6-13.7); WHITE BLOOD COUNT (AUTO) 8.4 K/uL (4.8-10.8)
[2019-11-09 22:49] LABS: ALBUMIN 3.6 g/dL (3.4-5.0); CARBON DIOXIDE 26.8 mmol/L (21-32); CREATININE 0.9 mg/dL (0.6-1.3); POTASSIUM 3.8 mmol/L (3.5-5.1); TOTAL BILIRUBIN 0.5 mg/dL (0.0-1.0)
[2019-11-09 23:01] LABS: CREATINE KINASE MB 0.3 ng/mL (0-3.6)
--- NOTE | 2019-11-09 23:59 | NUR ---
AMOR @ 300. DR. JIMENEZ MADE AWARE.
--- NOTE | 2019-11-10 00:15 | NUR ---
44 Y/O FEMALE PRESENTS WITH BODY ACHES/ PAIN DURING INHALATION/EXHILATION. PAIN STATES PAIN IS BURNING IN CHEST WITH BREATHS, NON RADIATING, 9/10. RESP EVEN AND UNLABORED. 2L SP02 97%. AAOX4. BOWEL SOUNDS NORMO ACTIVE IN ALL QUADRANTS. SKIN COOL/DRY. ROM IN TACT UPPER/LOWER BILAT EXTR. CAP REFILL <3. GCS 15. PMH: DM, HTN, CHF, RA, ALLERGIES: LEVAQUIN, PENECILLIN
--- NOTE | 2019-11-10 01:12 | NUR ---
PT RESTING IN BED EYES CLOSED. RESPIRATIONS ARE EVEN AND UNLABORED. PT ON 2L/MIN NC O2SAT @ 96%. SKIN IS WARM AND DRY TO TOUCH. VSS. PT ON MONITOR. PT DENIES PAIN AT THIS TIME.
[2019-11-10] MEDS ORDERED: fentaNYL 0.05 MG/ML VIAL NS ONE (02:00)
[2019-11-10] MEDS ORDERED: fentaNYL 0.05 MG/ML VIAL IVP ONE (02:00)
--- NOTE | 2019-11-10 02:49 | NUR ---
PT RESTING IN BED EYES OPEN. PT AAO X4. RESPIRATIONS ARE EVEN AND UNLABORED. PT ON 2L/MIN NC O2SAT @ 96%. SKIN IS WARM AND DRY TO TOUCH. VSS. PT ON MONITOR. PT DENIES PAIN AT THIS TIME.
[2019-11-10 03:05] VITALS: BP 117/72
--- NOTE | 2019-11-10 03:05 | NUR ---
Patient discharged with v/s stable. Written and verbal after care instructions given and explained. Patient alert, oriented and verbalized understanding of instructions. Ambulatory with steady gait. All questions addressed prior to discharge. ID band removed. Patient advised to follow up with PMD. Rx of FIORICET given. Patient educated on indication of medication including possible reaction and side effects. Opportunity to ask questions provided and answered.
== END 2019-11-10 03:05 | disposition home or self-care (01) ==
LOC: MED 20:32
DX: R07.9 Chest pain, unspecified (principal); R51 Headache; R06.02 Shortness of breath; J45.909 Unspecified asthma, uncomplicated; E11.9 Type 2 diabetes mellitus without complications; I10 Essential (primary) hypertension; E07.9 Disorder of thyroid, unspecified; Z90.49 Acquired absence of other specified parts of digestive tract; Z79.84 Long term (current) use of oral hypoglycemic drugs; Z79.899 Other long term (current) drug therapy; Z79.82 Long term (current) use of aspirin; Z88.0 Allergy status to penicillin; Z98.890 Other specified postprocedural states
CPT/HCPCS: 36415; 71045; 80053; 82550; 82553; 83690; 84484; 85025; 85379; 93005; 96372; 99285; J1885; J3010

== ENCOUNTER 2020-01-23 14:58 | Emergency (ER) | payer BC, OTHER ==
[~2020-01-23] VITALS: Ht 167.6 cm; Wt 110.2 kg
[2020-01-23 15:59] VITALS: BP 117/80
--- NOTE | 2020-01-23 16:20 | NUR ---
PT C/C RIGHT SIDED ABDOMEN RADIATING TO RIGHT FLANK . PT RATES PAIN 10/10, SHARP AND RADIATING. PT PAIN X1 , STATES "IT GETS WORSE WITH PAIN". PT STATES SHE HAS HAD THIS TYPE OF PAIN BEFORE WHEN SHE HAD PANCREATITIS. BOWEL SOUNDS ACTIVE X4. ABDOMEN DISTENDED , TENDER TO TOUCH. PT STATES HAS HX OF PANCREATITIS , ABDOMINAL HERNIA, GALLBLADDER HAS BEEN REMOVED, OVARIAN TUMOR , ASTHMA, DIABETES , HIGH CHOLESTEROL, HTN, RA. PT HAS NAUSEA , DIARRHEA x2 YESTERDAY, DENIES BLOOD IN STOOL , DENIES VOMITTING. PT STATES SHE HAS NOT TAKEN ANY MEDICATION TODAY. PT RESTING IN BED , SIDE RAIL x1. WILL CONTINUE TO MONITOR.
[2020-01-23] MEDS ORDERED: NACL 0.9% 1,000 ML IV SCH (16:31)
--- NOTE | 2020-01-23 16:41 | NUR ---
Dr. Jensen is evaluating the patient at bedside.
[2020-01-23] MEDS ORDERED: MORPHINE SULFATE 4 MG/ML SYR IVP ONE (16:45)
[2020-01-23] MEDS ORDERED: ONDANSETRON 4 MG/2 ML VIAL IVP ONE (16:45)
[2020-01-23 17:08] LABS: BASOPHILS # (AUTO) 0.3 K/uL (0.00-0.22); BASOPHILS % (AUTO) 2.4 % (0.0-2.0); EOSINOPHILS # (AUTO) 0.1 K/uL (0-0.4); HEMATOCRIT 37.2 % (36-48); HEMOGLOBIN 11.5 g/dL (12.0-16.0); LYMPHOCYTES # (AUTO) 1.7 K/uL (2.5-16.5); MEAN CORPUSCULAR HEMOGLOBIN 24 pg (27-31); MEAN CORPUSCULAR HGB CONC 31 g/dL (33-37); MEAN CORPUSCULAR VOLUME 78.6 fL (80-94); MONOCYTES # (AUTO) 0.6 K/uL (0.8-1.0); MONOCYTES % (AUTO) 4.9 % (1.7-9.3); NEUTROPHILS # (AUTO) 9.2 K/uL (1.8-7.7); NEUTROPHILS % (AUTO) 77.7 % (42.2-75.2); PLATELET COUNT (AUTO) 238 K/uL (140-450); RED BLOOD CELL COUNT(AUTO) 4.73 MIL/uL (4.20-5.40); RED CELL DISTRIBUTION WIDTH 21.1 % (11.6-13.7); WHITE BLOOD COUNT (AUTO) 11.9 K/uL (4.8-10.8)
--- NOTE | 2020-01-23 17:21 | NUR ---
PT RESTING IN BED, SIDE RAIL X1
[2020-01-23 17:25] LABS: APPEARANCE,URINE CLEAR (CLEAR); BILIRUBIN,URINE NEGATIVE (NEGATIVE); BLOOD, URINE NEGATIVE (NEGATIVE); COLOR,URINE YELLOW (YELLOW); LEUKOCYTE ESTERASE ,URINE NEGATIVE (NEGATIVE); NITRITE, URINE NEGATIVE (NEGATIVE); UGLUCOSE 3+ (NEGATIVE)
[2020-01-23 17:36] LABS: ALBUMIN 3.6 g/dL (3.4-5.0); ANION GAP 14.3 (8-16); CARBON DIOXIDE 25.7 mmol/L (21-32); CREATININE 1.2 mg/dL (0.6-1.3); TOTAL BILIRUBIN 0.4 mg/dL (0.0-1.0)
--- NOTE | 2020-01-23 17:44 | NUR ---
PT TAKEN TO CT VIA DAYDAY
--- NOTE | 2020-01-23 17:45 | NUR ---
PT RATES PAIN / , STATES " IT FEELS BETTER THAN BEFORE I GOT THE MORPHINE." PT IN BED RESTING, SIDE RAILS X1.
--- NOTE | 2020-01-23 18:01 | NUR ---
PT RETURNED FROM CT. PT RESTING COMFORTABLY IN BED , SIDE RAILS x1. PT IV NS RESTARTED. NAD NOTED. WILL CONTINUE TO MONITOR.
--- NOTE | 2020-01-23 19:21 | NUR ---
REPORT GIVEN TO ADDIS SAMS FOR CONTINUITY OF CARE.
[2020-01-23 19:52] VITALS: BP 142/78
--- NOTE | 2020-01-23 19:52 | NUR ---
Patient discharged with v/s stable. Written and verbal after care instructions given and explained. Patient alert, oriented and verbalized understanding of instructions. Ambulatory with steady gait. All questions addressed prior to discharge. ID band removed. Patient advised to follow up with PMD. Rx of PEPCID; COLACE; ZOFRAN; NORCO given. Patient educated on indication of medication including possible reaction and side effects. Opportunity to ask questions provided and answered.
== END 2020-01-23 19:52 | disposition home or self-care (01) ==
LOC: MED 14:58
DX: R10.9 Unspecified abdominal pain (principal); R11.2 Nausea with vomiting, unspecified; E11.9 Type 2 diabetes mellitus without complications; I11.0 Hypertensive heart disease with heart failure; J45.909 Unspecified asthma, uncomplicated; Z79.899 Other long term (current) drug therapy; Z79.4 Long term (current) use of insulin; Z79.84 Long term (current) use of oral hypoglycemic drugs; Z88.0 Allergy status to penicillin
CPT/HCPCS: 36415; 74176; 80053; 81003; 82150; 83690; 84703; 85025; 96361; 96374; 96375; 99284; J2270; J2405; J7030

== ENCOUNTER 2020-02-29 16:29 | Emergency (ER) | payer BC, OTHER ==
[~2020-02-29] VITALS: Ht 167.6 cm; Wt 110.2 kg
[2020-02-29 16:34] VITALS: BP 133/87
--- NOTE | 2020-02-29 16:52 | NUR ---
44/F C/O R SIDED NUMBNESS/TINGLING/PAIN TO FACE RADIATING DOWN BODY X TODAY. THE RT FACIAL NUMBNESS STARTED AT FOREHEAD AND PROGRESSED DOWN FACE WHEN SHE WOKE UP THIS AM, UNSPECIFIED TIME. THEN IN THE AFTERNOON THE SYMPTOMS PROGRESSED TO REST OR RT BODY. PT ALSO REPORTS DIZZINESS; AMB [facility] WITH STEADY GAIT. 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 HAS RT FOREHEAD TINGLING/NUMBNESS/PAIN SINCE THE SURGERY. NO FACIAL ASYMMETRY/DROOP. EQUAL RN HYPERBARIC STRENGTH BL. FULL CLEAR SPEECH, NO SLURRING OR DELAY. GCS 15, AOX4. ACCU CHECK 154 TAKES ASPIRIN PMH- HTN, HIGH CHOLESTEROL, DM, HF, RA, PANCREATITIS, GASTRITIS, HYPOTHYROIDISM, DIVERTICULOSIS, ANEMIA, DEPRESSION, ANXIETY
--- NOTE | 2020-02-29 16:52 | NUR ---
DR. PANDYA EVALUATING PT AT BEDSIDE
--- NOTE | 2020-02-29 17:03 | NUR ---
PT BACK FROM CT SCAN VIA W/C
--- NOTE | 2020-02-29 17:10 | NUR ---
ACCOUNTING ANALYST AT BEDSIDE FOR BLOOD DRAW
[2020-02-29 17:15] LABS: BASOPHILS % (AUTO) 0.4 % (0.0-2.0); EOSINOPHILS # (AUTO) 0.2 K/uL (0-0.4); EOSINOPHILS % (AUTO) 1.5 % (0.0-4.0); HEMATOCRIT 39.5 % (36-48); HEMOGLOBIN 12.5 g/dL (12.0-16.0); LYMPHOCYTES # (AUTO) 2.5 K/uL (2.5-16.5); LYMPHOCYTES % (AUTO) 21.5 % (20.5-51.1); MEAN CORPUSCULAR HEMOGLOBIN 26 pg (27-31); MEAN CORPUSCULAR HGB CONC 32 g/dL (33-37); MEAN CORPUSCULAR VOLUME 82.1 fL (80-94); MONOCYTES # (AUTO) 0.7 K/uL (0.8-1.0); MONOCYTES % (AUTO) 5.6 % (1.7-9.3); NEUTROPHILS # (AUTO) 8.4 K/uL (1.8-7.7); PLATELET COUNT (AUTO) 222 K/uL (140-450); RED BLOOD CELL COUNT(AUTO) 4.81 MIL/uL (4.20-5.40); RED CELL DISTRIBUTION WIDTH 21.5 % (11.6-13.7); WHITE BLOOD COUNT (AUTO) 11.8 K/uL (4.8-10.8)
[2020-02-29 17:30] LABS: ALBUMIN 3.8 g/dL (3.4-5.0); ANION GAP 13.8 (8-16); CARBON DIOXIDE 27.9 mmol/L (21-32); CREATININE 0.9 mg/dL (0.6-1.3); POTASSIUM 3.7 mmol/L (3.5-5.1); TOTAL BILIRUBIN 0.4 mg/dL (0.0-1.0)
--- NOTE | 2020-02-29 17:37 | NUR ---
DR PANDYA SPEAKING WITH PT AT BEDSIDE
[2020-02-29] MEDS ORDERED: HYDROcodone/APAP 5/325 MG 1 TAB TAB PO ONE (17:40)
[2020-02-29 18:05] VITALS: BP 124/76
--- NOTE | 2020-02-29 18:05 | NUR ---
Patient discharged with v/s stable. WILL BE PICKED UP BY FAMILY MEMBER. Written and verbal after care instructions given and explained. Patient verbalized understanding. Ambulatory with steady gait. All questions addressed prior to discharge. Advised to follow up with PMD.
== END 2020-02-29 18:05 | disposition home or self-care (01) ==
LOC: MED 16:29
DX: R20.2 Paresthesia of skin (principal); I11.0 Hypertensive heart disease with heart failure; J45.909 Unspecified asthma, uncomplicated; E11.9 Type 2 diabetes mellitus without complications; E07.9 Disorder of thyroid, unspecified; F41.9 Anxiety disorder, unspecified; E78.00 Pure hypercholesterolemia, unspecified; F32.89 Other specified depressive episodes; K85.90 Acute pancreatitis without necrosis or infection, unspecified; D64.9 Anemia, unspecified; Z79.899 Other long term (current) drug therapy; Z88.0 Allergy status to penicillin; Z88.2 Allergy status to sulfonamides; Z79.82 Long term (current) use of aspirin; Z79.84 Long term (current) use of oral hypoglycemic drugs
CPT/HCPCS: 36415; 70450; 80053; 85025; 99284

== ENCOUNTER 2020-10-24 20:59 | Emergency (ER) | payer BC, OTHER ==
[~2020-10-24] VITALS: Ht 167.6 cm; Wt 105.2 kg
[~2020-10-24 20:59] MED LIST changes: -ACET-787 PO; -ALEN70TA9 PO; +FOS70 PO; +HYDR-5191 PO
[2020-10-24 21:08] VITALS: BP 135/82
[2020-10-24] MEDS ORDERED: ONDANSETRON 4 MG/2 ML VIAL IVP ONE (21:30)
[2020-10-24] MEDS ORDERED: KETOROLAC 30 MG/ML VIAL IVP ONE (21:30)
[2020-10-24] MEDS ORDERED: NACL 0.9% 1,000 ML IV ONE (21:30)
[2020-10-24 21:43] LABS: APPEARANCE,URINE SL CLOUDY (CLEAR); BILIRUBIN,URINE NEGATIVE (NEGATIVE); BLOOD, URINE TRACE-I (NEGATIVE); COLOR,URINE YELLOW (YELLOW); LEUKOCYTE ESTERASE ,URINE TRACE (NEGATIVE); NITRITE, URINE NEGATIVE (NEGATIVE); UGLUCOSE 3+ (NEGATIVE)
[2020-10-24 21:45] LABS: BASOPHILS # (AUTO) 0.2 K/uL (0.00-0.22); BASOPHILS % (AUTO) 1.9 % (0.0-2.0); EOSINOPHILS # (AUTO) 0.2 K/uL (0-0.4); EOSINOPHILS % (AUTO) 2.3 % (0.0-4.0); HEMATOCRIT 42.6 % (36-48); HEMOGLOBIN 13.7 g/dL (12.0-16.0); LYMPHOCYTES # (AUTO) 2.3 K/uL (2.5-16.5); MEAN CORPUSCULAR HEMOGLOBIN 29 pg (27-31); MEAN CORPUSCULAR HGB CONC 32 g/dL (33-37); MEAN CORPUSCULAR VOLUME 90.2 fL (80-94); MONOCYTES # (AUTO) 0.6 K/uL (0.8-1.0); MONOCYTES % (AUTO) 6.6 % (1.7-9.3); NEUTROPHILS # (AUTO) 6.5 K/uL (1.8-7.7); NEUTROPHILS % (AUTO) 66.2 % (42.2-75.2); PLATELET COUNT (AUTO) 198 K/uL (140-450); RED BLOOD CELL COUNT(AUTO) 4.73 MIL/uL (4.20-5.40); RED CELL DISTRIBUTION WIDTH 14.9 % (11.6-13.7); WHITE BLOOD COUNT (AUTO) 9.9 K/uL (4.8-10.8)
[2020-10-24 21:59] LABS: ALBUMIN 3.9 g/dL (3.4-5.0); ANION GAP 12.2 (8-16); CARBON DIOXIDE 25.6 mmol/L (21-32); CREATININE 1.1 mg/dL (0.6-1.3); POTASSIUM 3.8 mmol/L (3.5-5.1); TOTAL BILIRUBIN 0.5 mg/dL (0.0-1.0)
[2020-10-24 22:02] LABS: RBC,URINE 0-5 /HPF (0-5)
[2020-10-24 22:03] LABS: YEAST,URINE Rare /HPF (None Seen)
[2020-10-24] MEDS ORDERED: cefTRIAXone 1,000 MG VIAL ONE (22:20)
[2020-10-24] MEDS ORDERED: PANTOPRAZOLE 40 MG INJ VIAL IVP ONE (22:40)
[2020-10-24 23:40] VITALS: BP 134/80
== END 2020-10-24 23:40 | disposition home or self-care (01) ==
LOC: MED 20:59
DX: N39.0 Urinary tract infection, site not specified (principal); R11.2 Nausea with vomiting, unspecified; K57.90 Diverticulosis of intestine, part unspecified, without perforation or abscess without bleeding; I11.9 Hypertensive heart disease without heart failure; E11.9 Type 2 diabetes mellitus without complications; J45.909 Unspecified asthma, uncomplicated; E07.9 Disorder of thyroid, unspecified; E78.00 Pure hypercholesterolemia, unspecified; F32.9 Major depressive disorder, single episode, unspecified; D64.9 Anemia, unspecified; Z87.19 Personal history of other diseases of the digestive system
CPT/HCPCS: 36415; 74176; 80053; 81001; 83690; 85025; 87086; 96361; 96365; 96375; 99284; C9113; J0696; J1885; J2405

== ENCOUNTER 2020-10-29 18:34 | Emergency (ER) | payer BC, OTHER ==
[~2020-10-29] VITALS: Ht 167.6 cm; Wt 106.6 kg
[~2020-10-29 18:34] MED LIST changes: -LISI10TA11 PO; +LISI10TA30 PO
[2020-10-29 18:37] VITALS: BP 122/84
--- NOTE | 2020-10-29 18:44 | NUR ---
BLOOD SUGAR AT THIS TIME: 571. MADE AWARE.
--- NOTE | 2020-10-29 19:04 | NUR ---
45 YEAR OLD FEMALE COMPLAINS OF HIGH BLOOD SUGAR. PT STATES THAT SHE HAD HIGH READING ON BLOOD SUGAR MONITOR. PT STATES SHE HAS HEADACHE AND DIZZINESS, AND URINATES OFTEN. PT STATES HAS BURNING SENSATION FOR URINE BUT ALREADY DIAGNOSED WITH UTI AND TAKING ANTIBIOTICS. PT DENIES NAUSEA, VOMITTING. PT AOX4, BREATHING EVEN AND UNLABORED, SKIN WARM AND DRY. BED IN LOWEST POSITION, LOCKED, BED RAIL UPX1. PMH - DM2, HTN, RA, CHF, HLD, HYPOTHROID ALLERGIES - PCN, LEVAQUIN
[2020-10-29] MEDS ORDERED: INSULIN REGULAR, HUMAN 100 UNIT/ML VIAL SUBQ ONE (19:05)
[2020-10-29] MEDS ORDERED: NACL 0.9% 2,000 ML IV ONE (19:05)
--- NOTE | 2020-10-29 19:14 | NUR ---
REPORT GIVEN TO CASIMIRO SAMS, TRANSFER OF CARE AT THIS TIME
--- NOTE | 2020-10-29 19:40 | NUR ---
PT ADMINISTERED 10 UNITS OF REGULAR INSULIN, BG WAS 571. SIDE RAIL X1, BED IN LOW POSITION, WILL CONTINUE TO MONITOR.
[2020-10-29] MEDS ORDERED: KETOROLAC 30 MG/ML VIAL IVP ONE (20:20)
[2020-10-29 20:26] LABS: ACETONE, SERUM NEGATIVE (NEGATIVE)
[2020-10-29 20:29] LABS: BASOPHILS # (AUTO) 0.3 K/uL (0.00-0.22); EOSINOPHILS # (AUTO) 0.2 K/uL (0-0.4); EOSINOPHILS % (AUTO) 1.8 % (0.0-4.0); HEMOGLOBIN 14.1 g/dL (12.0-16.0); LYMPHOCYTES # (AUTO) 1.7 K/uL (2.5-16.5); LYMPHOCYTES % (AUTO) 18.4 % (20.5-51.1); MEAN CORPUSCULAR HEMOGLOBIN 30 pg (27-31); MEAN CORPUSCULAR HGB CONC 33 g/dL (33-37); MEAN CORPUSCULAR VOLUME 90.3 fL (80-94); MONOCYTES # (AUTO) 0.6 K/uL (0.8-1.0); MONOCYTES % (AUTO) 6.8 % (1.7-9.3); NEUTROPHILS # (AUTO) 6.5 K/uL (1.8-7.7); PLATELET COUNT (AUTO) 181 K/uL (140-450); RED BLOOD CELL COUNT(AUTO) 4.76 MIL/uL (4.20-5.40); RED CELL DISTRIBUTION WIDTH 15.1 % (11.6-13.7); WHITE BLOOD COUNT (AUTO) 9.3 K/uL (4.8-10.8)
[2020-10-29 20:46] LABS: ANION GAP 13.5 (8-16); ASPARTATE AMINOTRANSFERASE 51 U/L (15-37); CARBON DIOXIDE 25.7 mmol/L (21-32); CHLORIDE 100 mmol/L (98-107); CREATININE 1.3 mg/dL (0.6-1.3); GFR ARICAN-AMERICAN 57 mL/min (>90); POTASSIUM 4.2 mmol/L (3.5-5.1); SODIUM SERUM 135 mmol/L (136-145); TOTAL BILIRUBIN 0.6 mg/dL (0.0-1.0); UREA NITROGEN, BLOOD 18 mg/dL (7-18)
[2020-10-29 20:48] LABS: GLUCOSE 519 mg/dL (74-106)
--- NOTE | 2020-10-29 20:56 | NUR ---
BG 398, ERMD MADE AWARE. WILL CONTINUE TO MONITOR
--- NOTE | 2020-10-29 21:51 | NUR ---
PT RESTING QUIETLY IN BED. 2ND BAG OF NS INFUSING, WILL RECHECK BG ONCE COMPLETED. NO DISTRESS NOTED OR VERBALIZED AT THIS TIME. VSS, R/R EQUAL, AND UNLABORED. SIDE RAIL X2, BED IN LOW POSITION, HOB ELEVATED. SAFETY PRECAUTIONS IN PLACE WILL CONTINUE TO MONITOR.
[2020-10-29 23:04] VITALS: BP 122/84
--- NOTE | 2020-10-29 23:04 | NUR ---
BG RECHECK AT 322. PT RESTING QUIETLY IN BED. NO DISTRESS NOTED OR VERBALIZED AT THIS TIME. VSS, R/R EQUAL, AND UNLABORED. SIDE RAIL X2, BED IN LOW POSITION, HOB ELEVATED. SAFETY PRECAUTIONS IN PLACE WILL CONTINUE TO MONITOR.
--- NOTE | 2020-10-29 23:12 | NUR ---
Patient discharged with v/s stable. Written and verbal after care instructions given and explained. Patient alert, oriented and verbalized understanding of instructions. Ambulatory with steady gait. All questions addressed prior to discharge. ID band removed. Patient advised to follow up with PMD. Rx of HUMALOG JOSE MIGUELIKPEN given. Patient educated on indication of medication including possible reaction and side effects. Opportunity to ask questions provided and answered.
== END 2020-10-29 23:12 | disposition home or self-care (01) ==
LOC: MED 18:34
DX: E11.65 Type 2 diabetes mellitus with hyperglycemia (principal); R11.0 Nausea; J45.909 Unspecified asthma, uncomplicated; E11.9 Type 2 diabetes mellitus without complications; I10 Essential (primary) hypertension; E03.9 Hypothyroidism, unspecified; Z91.14 Patient's other noncompliance with medication regimen; Z88.0 Allergy status to penicillin; Z88.1 Allergy status to other antibiotic agents; Z79.84 Long term (current) use of oral hypoglycemic drugs; Z79.82 Long term (current) use of aspirin; Z79.899 Other long term (current) drug therapy
CPT/HCPCS: 36415; 80053; 81002; 81025; 82009; 85025; 96361; 96372; 96374; 99284; J1815; J1885; J7030

== ENCOUNTER 2020-11-12 18:19 | Inpatient (IN) | payer OTHER, SELFPAY ==
[~2020-11-12] VITALS: Ht 167.6 cm; Wt 105.2 kg
[2020-11-12 18:35] VITALS: BP 147/93
--- NOTE | 2020-11-12 18:41 | NUR ---
BIBS from home with c/o ABD PAIN STARTED 1400, WITH NAUSEA, NO EMESIS EPISODES. PT STATES PAIN STARTS FROM LLQ AND LUQ AND RADIATES TO R SIDE, COMES AND GOES. 10/10 SHARP. PT COMPLAINS OF BLOOD DURING BM, DARK RED IN TOILET and hard. LAST BM: 1100. LAST GLUCOSE WAS 444 @1300. TOOK RECENT GLUCOSE 1832 @566. PMH: HTN, DM2, panc, diverticulitis, ASTHMA, RA, HLD. NO LMP. A, A, O x 4, cooperative, HOB elevated. Room air resp even and unlabored, in no acute distress, VVS Will continue to monitor and assess
--- NOTE | 2020-11-12 19:22 | NUR ---
Detailed report given to LATRELL Delarosa front end wheel loader operator. Questions answered. Meds and orders reviewed.
[2020-11-12] MEDS ORDERED: NACL 0.9% 1,000 ML IV ONE ×2 (20:00→21:15)
[2020-11-12] MEDS ORDERED: ONDANSETRON 4 MG/2 ML VIAL IVP ONE (20:00)
[2020-11-12] MEDS ORDERED: KETOROLAC 30 MG/ML VIAL IVP ONE (20:00)
--- NOTE | 2020-11-12 20:00 | NUR ---
PT CONTINUES TO C/O INTERMITTENT ABDOMINAL PAIN 10/10 W/GENERALIZED WEAKNESS. ERMD MADE AWARE.
--- NOTE | 2020-11-12 20:30 | NUR ---
20 G PLACED IN RAC, PT TOLERATED WELL.
[2020-11-12 20:34] LABS: BASOPHILS # (AUTO) 0.1 K/uL (0.00-0.22); BASOPHILS % (AUTO) 0.6 % (0.0-2.0); EOSINOPHILS % (AUTO) 0.4 % (0.0-4.0); HEMATOCRIT 39.5 % (36-48); HEMOGLOBIN 12.7 g/dL (12.0-16.0); LYMPHOCYTES # (AUTO) 1.8 K/uL (2.5-16.5); LYMPHOCYTES % (AUTO) 14.5 % (20.5-51.1); MEAN CORPUSCULAR HEMOGLOBIN 29 pg (27-31); MEAN CORPUSCULAR HGB CONC 32 g/dL (33-37); MEAN CORPUSCULAR VOLUME 90.3 fL (80-94); MONOCYTES # (AUTO) 0.5 K/uL (0.8-1.0); MONOCYTES % (AUTO) 4.1 % (1.7-9.3); NEUTROPHILS % (AUTO) 80.4 % (42.2-75.2); PLATELET COUNT (AUTO) 258 K/uL (140-450); RED BLOOD CELL COUNT(AUTO) 4.37 MIL/uL (4.20-5.40); RED CELL DISTRIBUTION WIDTH 14.6 % (11.6-13.7); WHITE BLOOD COUNT (AUTO) 12.5 K/uL (4.8-10.8)
[2020-11-12 20:58] LABS: ALBUMIN 3.5 g/dL (3.4-5.0); ANION GAP 15.8 (8-16); CARBON DIOXIDE 24.6 mmol/L (21-32); CREATININE 1.1 mg/dL (0.6-1.3); POTASSIUM 4.4 mmol/L (3.5-5.1); TOTAL BILIRUBIN 0.3 mg/dL (0.0-1.0)
[2020-11-12] MEDS ORDERED: INSULIN REGULAR, HUMAN 100 UNIT/ML VIAL IVP ONE (21:15)
[2020-11-12] MEDS ORDERED: NACL 0.9% 2,000 ML IV ONE (21:15)
[2020-11-12] MEDS ORDERED: MORPHINE SULFATE 4 MG/ML SYR ONE (21:28)
--- NOTE | 2020-11-12 21:41 | NUR ---
PT MEDICATED WITH 4MG MORPHINE IVP, FOR 10/10 ABDOMINAL PAIN, TOLERATED WELL. WILL CONTINUE TO MONITOR.
--- NOTE | 2020-11-12 21:51 | NUR ---
PT RETURN FROM CT
--- NOTE | 2020-11-12 22:00 | NUR ---
PT RESTING IN BED QUIETLY. STATES HER PAIN IS RESOLVING SINCE BEING ADMINISTERED PAIN MEDS. VSS, R/R EQUAL, AND UNLABORED. HOB ELEVATED, BED IN LOW POSITION, SIDE RAIL X2 WILL CONTINUE TO MONITOR.
[2020-11-12] MEDS ORDERED: MORPHINE SULFATE 4 MG/ML SYR IVP ONE (22:25)
[2020-11-12] MEDS ORDERED: MEROPENEM 1,000 MG in NACL 0.9% 100 ML IV ONE (22:30)
[2020-11-12] MEDS ORDERED: MEROPENEM 1,000 MG VIAL IV ONE (22:53)
--- NOTE | 2020-11-12 23:08 | NUR ---
PT RESTING IN BED QUIETLY. VSS, R/R EQUAL, AND UNLABORED. HOB ELEVATED, BED IN LOW POSITION, SIDE RAIL X2 WILL CONTINUE TO MONITOR.
[2020-11-12] MEDS: NACL 0.9% 1,000 ML IV SCH (23:10)
[2020-11-12] MEDS ORDERED: DEXTROSE 50% 50 ML SYR IVP PRN (23:10)
[2020-11-12] MEDS ORDERED: ACETAMINOPHEN 325 MG TAB PO PRN (23:10)
[2020-11-12] MEDS: MORPHINE SULFATE 4 MG/ML SYR IVP PRN (23:48)
--- NOTE | 2020-11-13 00:15 | NUR ---
PT RESTING IN BED QUIETLY. VSS, R/R EQUAL, AND UNLABORED. HOB ELEVATED, BED IN LOW POSITION, SIDE RAIL X2 WILL CONTINUE TO MONITOR.
--- NOTE | 2020-11-13 00:15 | NUR ---
Note randalcami in ED - 11/13/20 at 0027 by MEDWQ PT RESTING IN BED QUIETLY. STATES HER PAIN IS RESOLVING SINCE BEING ADMINISTERED PAIN MEDS. VSS, R/R EQUAL, AND UNLABORED. HOB ELEVATED, BED IN LOW POSITION, SIDE RAIL X2 WILL CONTINUE TO MONITOR.
[2020-11-13] MEDS ORDERED: PRED10TA5 PO (00:36)
--- NOTE | 2020-11-13 01:18 | NUR ---
Patient will be admitted to care of DR. BORRERO. Admited to MED SURG. Will go to room 125 B. Belongings list completed. Report to LATRELL IQBAL.
[2020-11-13 01:30] VITALS: BP 133/83
--- NOTE | 2020-11-13 01:30 | NUR ---
RECEIVED PT FROM ER TRANSPORTER VIA WHEELCHAIR. PT IS AWAKE AND ALERT, A&OX4. STEADY GAIT. ON RA WITH BREATHING UNLABORED. ABDOMEN ROUND AND SOFT. PAIN IN THE MEDIAL ABDOMEN AT A SCALE OF 6/10. WILL MEDICATE SHORTLY. SKIN IS WARM, DRY, AND SOFT. IV IS PATENT AND FLUSHING. ON NS FLUIDS AT 80 ML PER HOUR PER ORDER. PT IS STABLE AT THIS TIME. SPEAKING APPROPRIATELY, ANSWERING ALL QUESTIONS. PLAN OF CARE DISCUSSED.
[2020-11-13] MEDS: HYDROcodone/APAP 5/325 MG 1 TAB TAB PO PRN ×5 (02:21→21:23)
--- NOTE | 2020-11-13 02:21 | NUR ---
NORCO WAS GIVEN FOR PAIN IN THE ABDOMEN AT A SCALE OF 6/10. PT STATES PAIN IS ACHING IN THE MEDIAL ABDOMEN AND RADIATES OUTWARD. BP WAS 133/63 PRIOR TO ADMINISTRATION.
--- NOTE | 2020-11-13 03:30 | NUR ---
RT AT BEDSIDE PLACING PT ON CPAP FOR SLEEP APNEA. CPAP REQUESTED BY PT SHE STATES SHE WEARS IT AT HOME TO SLEEP DAILY. PT IS STABLE. BREATHING IS UNLABORED. NO RESPIRATORY DISTRESS NOTED.
[2020-11-13 04:00] VITALS: BP 130/81
[2020-11-13 05:49] LABS: BASOPHILS # (AUTO) 0.3 K/uL (0.00-0.22); BASOPHILS % (AUTO) 2.4 % (0.0-2.0); EOSINOPHILS # (AUTO) 0.3 K/uL (0-0.4); EOSINOPHILS % (AUTO) 2.9 % (0.0-4.0); HEMATOCRIT 36.7 % (36-48); HEMOGLOBIN 11.7 g/dL (12.0-16.0); LYMPHOCYTES # (AUTO) 1.6 K/uL (2.5-16.5); LYMPHOCYTES % (AUTO) 14.5 % (20.5-51.1); MEAN CORPUSCULAR HEMOGLOBIN 29 pg (27-31); MEAN CORPUSCULAR HGB CONC 32 g/dL (33-37); MEAN CORPUSCULAR VOLUME 91.1 fL (80-94); MONOCYTES # (AUTO) 0.8 K/uL (0.8-1.0); MONOCYTES % (AUTO) 7.4 % (1.7-9.3); NEUTROPHILS # (AUTO) 8.3 K/uL (1.8-7.7); NEUTROPHILS % (AUTO) 72.8 % (42.2-75.2); PLATELET COUNT (AUTO) 220 K/uL (140-450); RED BLOOD CELL COUNT(AUTO) 4.03 MIL/uL (4.20-5.40); RED CELL DISTRIBUTION WIDTH 14.8 % (11.6-13.7); WHITE BLOOD COUNT (AUTO) 11.3 K/uL (4.8-10.8)
[2020-11-13] MEDS ORDERED: MEROPENEM 500 MG VIAL IV ONE (05:59)
[2020-11-13] MEDS: LEVOTHYROXINE 0.025 MG TAB PO SCH (06:05)
[2020-11-13] MEDS: MORPHINE SULFATE 2 MG/ML SYR IVP PRN (06:05)
[2020-11-13] MEDS: ONDANSETRON 4 MG/2 ML VIAL IVP PRN ×3 (06:05→12:49)
--- NOTE | 2020-11-13 06:05 | NUR ---
PT WAS GIVEN ZOFRAN FOR NAUSEA/VOMITING. PT HAD TWO EPISODES OF A SMALL AMOUNT OF EMESIS. CLEAR IN COLOR AND THIN CONSISTENCY. WILL MONITOR FOR VOMITING.
--- NOTE | 2020-11-13 06:05 | NUR ---
PT STATES SHE HAS PAIN AT A SCALE OF 8/10 IN THE ABDOMEN- MEDIAL. PAIN IS ACHING IN SENSATION. BP WAS 151/96 PRIOR TO ADMINISTERING MORPHINE IVP FOR PAIN. WILL MONITOR PAIN.
[2020-11-13] MEDS: BLOOD GLUCOSE MONITORING 1 DEV DEV FS SCH ×4 (06:06→21:19)
[2020-11-13] MEDS: MEROPENEM 1,000 MG in NACL 0.9% 100 ML IV SCH ×3 (06:06→21:03)
[2020-11-13] MEDS: INSULIN LISPRO SLIDING SCALE 100 UNITS/ML VIAL SUBQ PRN ×4 (06:08→21:29)
[2020-11-13 06:38] LABS: ALBUMIN 2.9 g/dL (3.4-5.0); CARBON DIOXIDE 27.1 mmol/L (21-32); POTASSIUM 4.1 mmol/L (3.5-5.1); TOTAL BILIRUBIN 0.3 mg/dL (0.0-1.0)
--- NOTE | 2020-11-13 07:20 | NUR ---
ENDORSED PT TO DAY SHIFT NURSE FOR CONTINUITY OF CARE. PT IS STABLE AT THIS TIME, RESTING IN SEMI FOWLERS POSITION. PLAN OF CARE DISCUSSED.
--- NOTE | 2020-11-13 07:35 | NUR ---
RECEIVED PT A/O X4. VERBALIZED ABDOMINAL PAIN. 10/10 PAIN SCALE. PT VOMITED, 100 ML OF GREEN VOMITUS. ON RA, NO S/S OF SOB. PERIPHERAL IV INTACT WITH NS RUNNING AT 80 ML/HR. PT IS AFEBRILE. BRP. POC DISCUSSED AND REVIEWED WITH CHRONOMETER ASSEMBLER RN. WILL CONTINUE TO MONITOR.
[2020-11-13 08:00] VITALS: BP 152/93
--- NOTE | 2020-11-13 08:33 | NUR ---
PATIENT HAS BEEN SCREENED AND CATEGORIZED MODERATE NUTRITION RISK. RECEIVED A REFERRAL FOR UNCONTROLLED DIABETES WHICH IS A MODERATE RISK FACTOR. PATIENT WILL BE SEEN WITHIN 3-5 DAYS OF ADMISSION. 11/15/20 11/17/[address]
[2020-11-13] MEDS: allopurinoL 300 MG TAB PO SCH (08:34)
[2020-11-13] MEDS: lisinopriL 20 MG TAB PO SCH (08:34)
[2020-11-13] MEDS: ESCITALOPRAM 20 MG TAB PO SCH (08:34)
[2020-11-13] MEDS: PANTOPRAZOLE 40 MG TABEC PO SCH (08:35)
[2020-11-13] MEDS: DOCUSATE SODIUM 100 MG GELCAP PO SCH ×2 (08:35→21:03)
[2020-11-13] MEDS: ASPIRIN 81 MG TAB.CHEW PO SCH (08:35)
[2020-11-13] MEDS: ATORVASTATIN 20 MG TAB PO SCH (08:35)
[2020-11-13] MEDS: ENOXAPARIN 40 MG/0.4 ML SYR SUBQ SCH (08:37)
[2020-11-13] MEDS: METOPROLOL SUCCINATE 50 MG TABER PO SCH (08:38)
--- NOTE | 2020-11-13 09:57 | NUR ---
PT IS RESTING AND CALM. EYES CLOSED. NO S/S OF DISCOMFORT. NO S/S OF NAUSEA OR VOMITING.
--- NOTE | 2020-11-13 10:28 | NUR ---
SOCIAL WORK NOTE: Patient's Orientation Unable To Assess Information Provided By SUAD STAFFORD - Comments SW WAS UNABLE TO MEET PATIENT AT BEDSIDE. SW COMPLETED ASSESSMENT WITH PATIENT'S . Mushroom Cutter, Realtionship and Phone Number SUAD OBREGON [phone] Healthcare Power of Corporate Pilot No Does Patient Have a POLST No Identifying Problems No Social Work Triggers Is A Social Work Consult Needed No Mandate Report Filed No Explanation Of Identifying Problems PATIENT IS A 45-YEAR-OLD FEMALE ADMITTED FOR SIGMOID DIVERTICULITIS. PATIENT HAS PMHX OF ASTHMA, CARDIAC DISORDERS, DIABETES, HYPERTENSION. Admitted From Home Pre-Admission Level Of Functioning Status Independent/Ambulatory Prior Resources/Services Used In Last 12 Months No Prior Resources Used Prior DME No Prior DME Used Dialysis Comments N/A Living Situation Lives With Family House Patient Had Caregiver No Home Support No Caregiver Issues Financial Issues No Known Financial Issue Referral To The Financial Counselor Needed No Factors/Needs No D/C Needs Identified Pt/Rep Participated In Discharge Plan Yes Patient/Family Agress With Discharge Plan Yes Discharge Plan Comments TENTATIVE DISCHARGE PLAN IS FOR PATIENT TO RETURN HOME. DC Plan Status Initiated
--- NOTE | 2020-11-13 12:24 | NUR ---
DISCHARGE PLANNING: THIS IS A 45 Y/O FEMALE PATIENT FROM HOME, WHO CAME IN DUE TO SUDDEN ONSET SUPRAPUBIC ABDOMINAL PAIN. PAST MEDICAL HISTORY INCLUDE ASTHMA, CARDIAC DISORDERS, DIABETES, HTN AND HYPOTHYROIDISM. INITIAL DIAGNOSIS OF SIGMOID DIVERTICULITIS, UNCONTROLLED DM. CURRENT LABS INCLUDE WBC 11.3, H/H 11.7/36.7, NA/K 142/4.1, BUN/CREA 16/1.0. RAPID COVID TEST NEGATIVE. ON MEROPENEM. NO CONSULTS AT THIS TIME, NOT SEEN BY ATTENDING YET. DC PLAN BACK TO HOME ONCE STABLE.
[2020-11-13] MEDS: NACL 0.9% 1,000 ML IV SCH ×2 (12:39→22:55)
--- NOTE | 2020-11-13 12:52 | NUR ---
PT DEMONSTRATED ABDOMINAL PAIN. 10/10 PAIN SCALE. PAIN MED GIVEN. PAIN INCREASES WHEN TURNING AND EXERTION.
[2020-11-13 16:00] VITALS: BP 136/85
--- NOTE | 2020-11-13 17:00 | NUR ---
INFORMED PT ON SURGICAL CONSULTATION ( DR. ASIF ). PT EXPERIENCED INTERMITTENT ABDOMINAL PAIN.
--- NOTE | 2020-11-13 19:22 | NUR ---
ENDORSED PT TO BELLSTAND ATTENDANT RN. POC DISCUSSED AND REVIEWED FOR CONTINUITY OF CARE.
--- NOTE | 2020-11-13 19:30 | NUR ---
REPORT Report obtained from day shift and this nruse assume care til 0730. Recieved patient awake during the evening shift. no c/o pain or discomfort.
[2020-11-13 20:00] VITALS: BP 118/77
[2020-11-13] MEDS: INSULIN LANTUS 100 UNITS/ML 10 ML VIAL SUBQ SCH (21:27)
--- NOTE | 2020-11-14 00:30 | NUR ---
PATIENT TOLERATED CPAP FROM @2227 TO @0030. PT COMPLAINED OF FEELING CLAUSTROPHOBIC.
[2020-11-14] MEDS: ONDANSETRON 4 MG/2 ML VIAL IVP PRN (00:37)
[2020-11-14] MEDS: MORPHINE SULFATE 2 MG/ML SYR IVP PRN (00:38)
[2020-11-14] MEDS: HYDROcodone/APAP 5/325 MG 1 TAB TAB PO PRN ×2 (03:08→21:35)
--- NOTE | 2020-11-14 03:10 | NUR ---
PATIENT CARE Medicated for pain and nausea with Ondansetron 4 mg IVP and Morphine 2 mg at 0038 with relief of nausea and pain. [place] given at 0308. IV NS at 80 ml/dhr. IVPB [place] q8h. VSS. afeb.
[2020-11-14 04:00] VITALS: BP 123/73
[2020-11-14] MEDS: MEROPENEM 1,000 MG in NACL 0.9% 100 ML IV SCH ×3 (05:48→21:25)
[2020-11-14] MEDS: BLOOD GLUCOSE MONITORING 1 DEV DEV FS SCH ×4 (05:52→21:30)
[2020-11-14] MEDS: MORPHINE SULFATE 4 MG/ML SYR IVP PRN ×2 (06:04→10:49)
[2020-11-14] MEDS: LEVOTHYROXINE 0.025 MG TAB PO SCH (06:25)
[2020-11-14] MEDS: INSULIN LISPRO SLIDING SCALE 100 UNITS/ML VIAL SUBQ PRN ×3 (06:27→21:37)
--- NOTE | 2020-11-14 07:00 | NUR ---
PATIENT CARE Medicated for pain with Morphine 4 mg at 0604. Accucheck AC & HS. HS BG 278 and AM BG 250. Given insulin as ordered. Patient had cpap until 0030 and refused any further during the night.
--- NOTE | 2020-11-14 07:30 | NUR ---
REPORT AND ENDORSEMENT Report given to [facility] nurse Almazan to assume care of patient. Still having pain. Morphine IVP and [place] given. VSS. Afeb.
--- NOTE | 2020-11-14 08:19 | NUR ---
Patient continues to complain of Abdominal pain and rating pain at 10/10. Patient has been given Morphine and [place] and has had no relief. Notified Dr Casper and awaiting call back to see if surgical intervention is needed.
[2020-11-14 08:35] VITALS: BP 149/91
[2020-11-14] MEDS: ENOXAPARIN 40 MG/0.4 ML SYR SUBQ SCH (09:00)
[2020-11-14] MEDS: ESCITALOPRAM 20 MG TAB PO SCH (09:48)
[2020-11-14] MEDS: METOPROLOL SUCCINATE 50 MG TABER PO SCH (09:48)
[2020-11-14] MEDS: ASPIRIN 81 MG TAB.CHEW PO SCH (09:48)
[2020-11-14] MEDS: ATORVASTATIN 20 MG TAB PO SCH (09:49)
[2020-11-14] MEDS: PANTOPRAZOLE 40 MG TABEC PO SCH (09:49)
[2020-11-14] MEDS: allopurinoL 300 MG TAB PO SCH (09:49)
[2020-11-14] MEDS: lisinopriL 20 MG TAB PO SCH (09:50)
[2020-11-14] MEDS: DOCUSATE SODIUM 100 MG GELCAP PO SCH ×2 (09:52→21:25)
--- NOTE | 2020-11-14 13:49 | NUR ---
Medical error reported to Yessi Reyes. Patient was having an increased pain at night and during the day with medication intervention not working. Sent message to Dr Casper to see if Patient could be placed on NPO status just in case a surgical procedure was indicated. No response was given immediately but when text messages were checked there was an order to do Small Bowel Series" this nurse went ahead and ordered the bowel series. The order was apparently in question to a different patient per surgeon. Incident report was written and Dr Elaine was notified and awaiting further instructions. Patient alert, oriented and has no issues at the moment.
[2020-11-14 14:37] LABS: BASOPHILS # (AUTO) 0.1 K/uL (0.00-0.22); BASOPHILS % (AUTO) 0.5 % (0.0-2.0); EOSINOPHILS # (AUTO) 0.1 K/uL (0-0.4); EOSINOPHILS % (AUTO) 0.3 % (0.0-4.0); HEMATOCRIT 43.9 % (36-48); LYMPHOCYTES % (AUTO) 4.8 % (20.5-51.1); MEAN CORPUSCULAR HEMOGLOBIN 29 pg (27-31); MEAN CORPUSCULAR HGB CONC 32 g/dL (33-37); MEAN CORPUSCULAR VOLUME 90.9 fL (80-94); MONOCYTES # (AUTO) 1.6 K/uL (0.8-1.0); MONOCYTES % (AUTO) 7.6 % (1.7-9.3); NEUTROPHILS % (AUTO) 86.8 % (42.2-75.2); PLATELET COUNT (AUTO) 243 K/uL (140-450); RED BLOOD CELL COUNT(AUTO) 4.83 MIL/uL (4.20-5.40); RED CELL DISTRIBUTION WIDTH 15.3 % (11.6-13.7); WHITE BLOOD COUNT (AUTO) 20.7 K/uL (4.8-10.8)
[2020-11-14 14:38] LABS: HEMOGLOBIN 14.1 g/dL (12.0-16.0)
[2020-11-14] MEDS: NACL 0.9% 1,000 ML IV SCH (16:59)
[2020-11-14 20:00] VITALS: BP 122/71
[2020-11-14] MEDS: INSULIN LANTUS 100 UNITS/ML 10 ML VIAL SUBQ SCH (21:24)
--- NOTE | 2020-11-15 00:13 | NUR ---
PT REFUSED CPAP FOR TONLATRELL TREVINO NOTIFIED.
[2020-11-15] MEDS: NACL 0.9% 1,000 ML IV SCH ×2 (01:32→14:11)
[2020-11-15 04:00] VITALS: BP 114/83
[2020-11-15] MEDS ORDERED: MEROPENEM 1,000 MG VIAL IV ONE (05:15)
[2020-11-15] MEDS: MEROPENEM 1,000 MG in NACL 0.9% 100 ML IV SCH ×2 (05:20→14:10)
[2020-11-15] MEDS: LEVOTHYROXINE 0.025 MG TAB PO SCH (06:11)
[2020-11-15] MEDS: INSULIN LISPRO SLIDING SCALE 100 UNITS/ML VIAL SUBQ PRN ×2 (06:15→17:00)
[2020-11-15] MEDS: BLOOD GLUCOSE MONITORING 1 DEV DEV FS SCH ×3 (07:30→16:58)
--- NOTE | 2020-11-15 08:02 | NUR ---
Patient noted to be sleeping and breathing non labored. Bed lowered, bed side stable nearby and has no further needs.
[2020-11-15 08:40] VITALS: BP 119/80
[2020-11-15] MEDS: ENOXAPARIN 40 MG/0.4 ML SYR SUBQ SCH (09:38)
[2020-11-15] MEDS: ATORVASTATIN 20 MG TAB PO SCH (09:38)
[2020-11-15] MEDS: allopurinoL 300 MG TAB PO SCH (09:39)
[2020-11-15] MEDS: lisinopriL 20 MG TAB PO SCH (09:39)
[2020-11-15] MEDS: PANTOPRAZOLE 40 MG TABEC PO SCH (09:39)
[2020-11-15] MEDS: METOPROLOL SUCCINATE 50 MG TABER PO SCH (09:40)
[2020-11-15] MEDS: DOCUSATE SODIUM 100 MG GELCAP PO SCH (09:40)
[2020-11-15] MEDS: ESCITALOPRAM 20 MG TAB PO SCH (09:40)
[2020-11-15] MEDS: ASPIRIN 81 MG TAB.CHEW PO SCH (09:40)
[2020-11-15 15:35] VITALS: BP 119/74
[2020-11-15 15:44] LABS: BASOPHILS # (AUTO) 0.1 K/uL (0.00-0.22); BASOPHILS % (AUTO) 0.8 % (0.0-2.0); EOSINOPHILS # (AUTO) 0.3 K/uL (0-0.4); EOSINOPHILS % (AUTO) 2.1 % (0.0-4.0); HEMOGLOBIN 11.6 g/dL (12.0-16.0); LYMPHOCYTES # (AUTO) 1.3 K/uL (2.5-16.5); MEAN CORPUSCULAR HEMOGLOBIN 29 pg (27-31); MEAN CORPUSCULAR HGB CONC 32 g/dL (33-37); MEAN CORPUSCULAR VOLUME 90.1 fL (80-94); MONOCYTES # (AUTO) 0.7 K/uL (0.8-1.0); MONOCYTES % (AUTO) 5.6 % (1.7-9.3); NEUTROPHILS # (AUTO) 9.6 K/uL (1.8-7.7); NEUTROPHILS % (AUTO) 80.5 % (42.2-75.2); PLATELET COUNT (AUTO) 201 K/uL (140-450); RED CELL DISTRIBUTION WIDTH 15.1 % (11.6-13.7); WHITE BLOOD COUNT (AUTO) 11.9 K/uL (4.8-10.8)
[2020-11-15 15:58] LABS: ALBUMIN 2.1 g/dL (3.4-5.0); ANION GAP 8.8 (8-16); CARBON DIOXIDE 26.5 mmol/L (21-32); CREATININE 0.8 mg/dL (0.6-1.3); POTASSIUM 3.3 mmol/L (3.5-5.1); TOTAL BILIRUBIN 0.4 mg/dL (0.0-1.0)
--- NOTE | 2020-11-15 17:08 | NUR ---
Patient's potassium 3.3, called Dr Dickson and awaiting orders.
[2020-11-15] MEDS ORDERED: METR-435 PO (17:19)
[2020-11-15] MEDS ORDERED: POTASSIUM CHLORIDE 10 MEQ TABER PO SCH (17:30)
[2020-11-15 17:42] VITALS: BP 128/81
--- NOTE | 2020-11-15 18:18 | NUR ---
Potassium replaced per order. Patient discharged home and was given information on procedures, disease process and instructions to managing disease. Taken off the unit in wheeled chair into private car.
== END 2020-11-15 18:32 | disposition home or self-care (01) | DRG 720 ==
LOC: MED 18:19 → MMU 23:16
PROVIDERS: ADMIT Hospitalist; ATTEND Hospitalist
DX: A41.9 Sepsis, unspecified organism (principal); E11.65 Type 2 diabetes mellitus with hyperglycemia; Z20.822 Contact with and (suspected) exposure to COVID-19; J45.909 Unspecified asthma, uncomplicated; I11.0 Hypertensive heart disease with heart failure; I50.9 Heart failure, unspecified; E78.5 Hyperlipidemia, unspecified; E03.9 Hypothyroidism, unspecified; K57.32 Diverticulitis of large intestine without perforation or abscess without bleeding; M06.9 Rheumatoid arthritis, unspecified; F32.9 Major depressive disorder, single episode, unspecified; F41.9 Anxiety disorder, unspecified; G89.29 Other chronic pain; K80.20 Calculus of gallbladder without cholecystitis without obstruction; Z88.1 Allergy status to other antibiotic agents; Z88.0 Allergy status to penicillin; Z79.82 Long term (current) use of aspirin; Z79.899 Other long term (current) drug therapy; Z79.84 Long term (current) use of oral hypoglycemic drugs; Z83.3 Family history of diabetes mellitus; Z82.49 Family history of ischemic heart disease and other diseases of the circulatory system
CPT/HCPCS: 36415; 74250; 80053; 82009; 82803; 82948; 83605; 84702; 85025; 87081; 96361; 96374; 96375; 99291; 99292; J1650; J1815; J1885; J2185; J2270; J2405; J7030

== ENCOUNTER 2021-02-10 20:48 | Emergency (ER) | payer OTHER, SELFPAY ==
[~2021-02-10] VITALS: Ht 167.6 cm; Wt 104.3 kg
[~2021-02-10 20:48] MED LIST changes: +METR-435 PO
[2021-02-10 21:03] VITALS: BP 131/90
[2021-02-10 22:33] LABS: BASOPHILS # (AUTO) 0.2 K/uL (0.00-0.22); BASOPHILS % (AUTO) 1.8 % (0.0-2.0); EOSINOPHILS # (AUTO) 0.3 K/uL (0-0.4); EOSINOPHILS % (AUTO) 2.1 % (0.0-4.0); HEMATOCRIT 43.3 % (36-48); HEMOGLOBIN 14.2 g/dL (12.0-16.0); LYMPHOCYTES # (AUTO) 3.2 K/uL (2.5-16.5); LYMPHOCYTES % (AUTO) 26.4 % (20.5-51.1); MEAN CORPUSCULAR HEMOGLOBIN 29 pg (27-31); MEAN CORPUSCULAR HGB CONC 33 g/dL (33-37); MEAN CORPUSCULAR VOLUME 87.3 fL (80-94); MONOCYTES # (AUTO) 0.8 K/uL (0.8-1.0); MONOCYTES % (AUTO) 6.3 % (1.7-9.3); NEUTROPHILS # (AUTO) 7.7 K/uL (1.8-7.7); NEUTROPHILS % (AUTO) 63.4 % (42.2-75.2); PLATELET COUNT (AUTO) 222 K/uL (140-450); RED BLOOD CELL COUNT(AUTO) 4.96 MIL/uL (4.20-5.40); RED CELL DISTRIBUTION WIDTH 15.3 % (11.6-13.7); WHITE BLOOD COUNT (AUTO) 12.2 K/uL (4.8-10.8)
[2021-02-10 22:52] LABS: ANION GAP 15.8 (8-16); CARBON DIOXIDE 23.8 mmol/L (21-32); POTASSIUM 3.6 mmol/L (3.5-5.1)
[2021-02-10 22:53] LABS: ALBUMIN 4.1 g/dL (3.4-5.0); CREATININE 0.8 mg/dL (0.6-1.3); TOTAL BILIRUBIN 0.6 mg/dL (0.0-1.0)
[2021-02-10] MEDS ORDERED: ONDANSETRON 4 MG/2 ML VIAL IVP ONE (22:55)
[2021-02-10] MEDS ORDERED: MORPHINE SULFATE 4 MG/ML SYR IVP ONE (22:55)
[2021-02-10 23:07] LABS: APPEARANCE,URINE CLEAR (CLEAR); BILIRUBIN,URINE NEGATIVE (NEGATIVE); BLOOD, URINE NEGATIVE (NEGATIVE); COLOR,URINE YELLOW (YELLOW); LEUKOCYTE ESTERASE ,URINE NEGATIVE (NEGATIVE); NITRITE, URINE NEGATIVE (NEGATIVE); UGLUCOSE 3+ (NEGATIVE)
[2021-02-11] MEDS ORDERED: NACL 0.9% 1,000 ML IV ONE (00:35)
[2021-02-11] MEDS ORDERED: ONDANSETRON 4 MG/2 ML VIAL IVP ONE (00:35)
[2021-02-11] MEDS ORDERED: MORPHINE SULFATE 4 MG/ML SYR IVP ONE (00:35)
[2021-02-11] MEDS ORDERED: KETOROLAC 30 MG/ML VIAL IVP ONE (02:35)
[2021-02-11] MEDS ORDERED: DICYCLOMINE 20 MG/2 ML VIAL IM ONE (02:35)
[2021-02-11] MEDS ORDERED: ACET-8386 PO (03:54)
[2021-02-11] MEDS ORDERED: BEN10 PO (03:54)
[2021-02-11 04:26] VITALS: BP 114/61
== END 2021-02-11 04:20 | disposition home or self-care (01) ==
LOC: MED 20:48
DX: R10.10 Upper abdominal pain, unspecified (principal); J45.909 Unspecified asthma, uncomplicated; E11.9 Type 2 diabetes mellitus without complications; I10 Essential (primary) hypertension; E03.9 Hypothyroidism, unspecified; Z79.84 Long term (current) use of oral hypoglycemic drugs; Z79.899 Other long term (current) drug therapy; Z79.82 Long term (current) use of aspirin; Z88.0 Allergy status to penicillin; Z88.1 Allergy status to other antibiotic agents
CPT/HCPCS: 36415; 74177; 80053; 81003; 81025; 83605; 83690; 85025; 87040; 96372; 96374; 96375; 96376; 99285; J0500; J1885; J2270; J2405; J7030; Q9967

== ENCOUNTER 2021-02-16 14:57 | Emergency (ER) | payer OTHER ==
[~2021-02-16] VITALS: Ht 167.6 cm; Wt 104.8 kg
[~2021-02-16 14:57] MED LIST changes: +ACET-8386 PO; +BEN10 PO
[2021-02-16 15:22] VITALS: BP 139/107
--- NOTE | 2021-02-16 15:32 | NUR ---
Patient ambulated to bed 03 with steady/even gait.
--- NOTE | 2021-02-16 15:32 | NUR ---
Patient to restroom for urine sample.
--- NOTE | 2021-02-16 15:57 | NUR ---
45 Y/O FEMALE FROM HOME C/O MID ABD PAIN X 6 DAYS. PT STATES VOMITING BEGAN TODAY AND DIARRHEA STARTED YESTERDAY. ABD SOFT, ROUND, SLIGHT TENDERNESS TO ABD UPON PALPATION. BOWEL SOUNDS PRESENT X 4 QUAD. SKIN WARM, DRY, INTACT. PT AWAKE AND ALERT. VSS MEDHX: DM, ASTHMA, CARDIAC, HTN, HLD, HYPOTHYROID, RHEUMATOID ARTHRITIS, DIVERTICULITIS
[2021-02-16] MEDS ORDERED: MORPHINE SULFATE 4 MG/ML SYR IVP ONE ×2 (16:25→18:10)
[2021-02-16] MEDS ORDERED: ONDANSETRON 4 MG/2 ML VIAL IVP ONE (16:25)
--- NOTE | 2021-02-16 16:42 | NUR ---
Patient resting in position of comfort. groundwater monitoring technician remains in place. Bed locked in lowest position, side rails x 1, call light in reach.
--- NOTE | 2021-02-16 16:42 | NUR ---
Pt transported to CT via wheelchair.
[2021-02-16 16:43] LABS: BASOPHILS # (AUTO) 0.3 K/uL (0.00-0.22); BASOPHILS % (AUTO) 2.4 % (0.0-2.0); EOSINOPHILS # (AUTO) 0.1 K/uL (0-0.4); HEMATOCRIT 45.2 % (36-48); HEMOGLOBIN 14.8 g/dL (12.0-16.0); LYMPHOCYTES # (AUTO) 2.2 K/uL (2.5-16.5); LYMPHOCYTES % (AUTO) 18.9 % (20.5-51.1); MEAN CORPUSCULAR HEMOGLOBIN 29 pg (27-31); MEAN CORPUSCULAR HGB CONC 33 g/dL (33-37); MEAN CORPUSCULAR VOLUME 88.6 fL (80-94); MONOCYTES # (AUTO) 0.4 K/uL (0.8-1.0); MONOCYTES % (AUTO) 3.4 % (1.7-9.3); NEUTROPHILS # (AUTO) 8.8 K/uL (1.8-7.7); NEUTROPHILS % (AUTO) 74.3 % (42.2-75.2); PLATELET COUNT (AUTO) 260 K/uL (140-450); WHITE BLOOD COUNT (AUTO) 11.9 K/uL (4.8-10.8)
--- NOTE | 2021-02-16 16:55 | NUR ---
Patient returned from CT via whelechair. Placed back onto cardiac rehabilitation program director.
[2021-02-16 17:17] LABS: ALBUMIN 4.2 g/dL (3.4-5.0); ANION GAP 16.5 (8-16); CREATININE 0.9 mg/dL (0.6-1.3); POTASSIUM 4.5 mmol/L (3.5-5.1)
[2021-02-16] MEDS ORDERED: NACL 0.9% 1,000 ML IV ONE (17:50)
--- NOTE | 2021-02-16 18:02 | NUR ---
Patient reports pain 06/28; Dr. Blackburn made aware.
--- NOTE | 2021-02-16 18:11 | NUR ---
Patient SpO2 88% while asleep. Patient reassessed; states sleep apnea and low SpO2 is normal. Pt states she is normally on 2L via N/C when asleep; Dr. Blackburn made aware and pt placed onto 2L via N/C; SpO2% @ 96%. Respirations even/unlabored.
--- NOTE | 2021-02-16 18:25 | NUR ---
Pt states positive relief after Morphine 4mg IVP; rates pain 7/10. Patient resting comfortably with both eyes closed. Respirations even/unlabored. service line coordinator remains in place; SpO2 96% on 2L via N/C. Bed locked in lowest position, side rails x 1, call light in reach.
[2021-02-16] MEDS ORDERED: BEN10 PO (18:49)
[2021-02-16] MEDS ORDERED: TRAM50TA1 PO (18:49)
[2021-02-16] MEDS ORDERED: ONDA-24 PO (18:49)
[2021-02-16 19:00] VITALS: BP 130/81
--- NOTE | 2021-02-16 19:00 | NUR ---
Patient discharged with v/s stable. Written and verbal after care instructions given and explained. Patient alert, oriented and verbalized understanding of instructions. Ambulatory with steady gait. All questions addressed prior to discharge. ID band removed. Patient advised to follow up with PMD. Rx of Dicyclomine Hydrochloride, Ondansetron, Tramadol Hcl given. Patient educated on indication of medication including possible reaction and side effects. Opportunity to ask questions provided and answered.
== END 2021-02-16 19:00 | disposition home or self-care (01) ==
LOC: MED 14:57
DX: R10.84 Generalized abdominal pain (principal); R11.10 Vomiting, unspecified; R19.7 Diarrhea, unspecified; J45.909 Unspecified asthma, uncomplicated; E11.9 Type 2 diabetes mellitus without complications; I10 Essential (primary) hypertension; E03.9 Hypothyroidism, unspecified; Z88.0 Allergy status to penicillin; Z88.1 Allergy status to other antibiotic agents; Z90.49 Acquired absence of other specified parts of digestive tract; Z98.890 Other specified postprocedural states; Z79.84 Long term (current) use of oral hypoglycemic drugs; Z79.82 Long term (current) use of aspirin; Z79.899 Other long term (current) drug therapy
CPT/HCPCS: 36415; 74176; 80053; 83690; 85025; 96361; 96374; 96375; 96376; 99284; J2270; J2405; J7030

== ENCOUNTER 2021-03-17 12:31 | Emergency (ER) | payer OTHER ==
[~2021-03-17] VITALS: Ht 167.6 cm; Wt 104.3 kg
[~2021-03-17 12:31] MED LIST changes: +OMEP-278 PO; -OMEP20TC12 PO; +ONDA-24 PO; +TRAM50TA1 PO
[2021-03-17 12:32] VITALS: BP 113/93
--- NOTE | 2021-03-17 12:50 | NUR ---
UA COLLECTED BEDSIDE
[2021-03-17] MEDS ORDERED: KETOROLAC 30 MG/ML VIAL IM ONE (12:55)
--- NOTE | 2021-03-17 12:55 | NUR ---
MD BEDSIDE EVALUATING PT
--- NOTE | 2021-03-17 13:01 | NUR ---
PT TAKEN TO XRAY VIA W/C
--- NOTE | 2021-03-17 13:12 | NUR ---
PATIENT RETURNED TO BED FROM XRAY VIA W/C
--- NOTE | 2021-03-17 13:24 | NUR ---
45 FEMALE WITH C/O LOWER BACK PAIN RADIATING TO UPPER BACK & LIZZY LEGS X 4 DAYS. PT STATES PAIN IS SHARP/PRESSURE. DENEIS ANY TRAUMA TO BACK. PT EXPERIENCE N/V FOR X4 DAYS. PMH: DM, HTN, HLD, RA, HYSTERECTOMY ALLERGIES: PENICILLIN, LEVOFLAXCIN
[2021-03-17] MEDS ORDERED: NAPR-1704 PO ×2 (13:42→13:58)
[2021-03-17 13:55] VITALS: BP 113/93
--- NOTE | 2021-03-17 13:57 | NUR ---
Patient discharged with v/s stable. Written and verbal after care instructions given DEGENERATIVE DISC DISEASE and explained. Patient alert, oriented and verbalized understanding of instructions. Ambulatory with steady gait. All questions addressed prior to discharge. ID band removed. Patient advised to follow up with PMD. Rx of NAPROXEN 375MG PO BID PRN PAIN given. Patient educated on indication of medication including possible reaction and side effects. Opportunity to ask questions provided and answered.
== END 2021-03-17 13:57 | disposition home or self-care (01) ==
LOC: MED 12:31
DX: M51.36 Other intervertebral disc degeneration, lumbar region (principal); J45.909 Unspecified asthma, uncomplicated; E11.9 Type 2 diabetes mellitus without complications; E03.9 Hypothyroidism, unspecified; Z88.0 Allergy status to penicillin; Z88.1 Allergy status to other antibiotic agents; Z90.49 Acquired absence of other specified parts of digestive tract; Z79.84 Long term (current) use of oral hypoglycemic drugs; Z79.899 Other long term (current) drug therapy; Z79.82 Long term (current) use of aspirin
CPT/HCPCS: 72100; 81025; 96372; 99283; J1885

== ENCOUNTER 2021-05-08 12:35 | Emergency (ER) | payer OTHER ==
[~2021-05-08] VITALS: Ht 167.6 cm; Wt 106.1 kg
[~2021-05-08 12:35] MED LIST changes: +NAPR-1704 PO
[2021-05-08 12:54] VITALS: BP 125/83
--- NOTE | 2021-05-08 13:01 | NUR ---
PT AMBULATED TO BED 3. GAIT STEADY
--- NOTE | 2021-05-08 13:18 | NUR ---
45 Y/O FEMALE, C/O ABD PAIN 9/10 RADIATES TO BILATERAL FLANK WITH DYSURIA, ITCHINESS, AND MINIMAL BLEEDING X2DAYS. PT STATES "WHENEVER SHE URINATES SHE WILL STRATCH HERSELF AND CAUSE HER TO BLEED." PMH: DM, HTN, HLD, DIVERTICULOSIS, GASTROPARESIS, RA, ASTHMA, ALLERGIES: PCN, LEVOFLAXACIN
--- NOTE | 2021-05-08 13:19 | NUR ---
UA COLLECTED BEDSIDE
--- NOTE | 2021-05-08 13:37 | NUR ---
Female Executive Recruiter accompanied female patient for Pelvic Exam.
[2021-05-08] MEDS ORDERED: KETOROLAC 60 MG/2 ML VIAL IM ONE (13:40)
[2021-05-08] MEDS ORDERED: ONDANSETRON 4 MG ODT PO ONE (13:40)
[2021-05-08] MEDS ORDERED: DIPH25TA53 PO (13:50)
[2021-05-08] MEDS ORDERED: SULF-59 PO (13:50)
[2021-05-08] MEDS ORDERED: IBUP-2213 PO (13:50)
[2021-05-08] MEDS ORDERED: ONDA8TAB87 PO (13:50)
[2021-05-08 14:02] VITALS: BP 122/76
--- NOTE | 2021-05-08 14:03 | NUR ---
Patient discharged with v/s stable. Written and verbal after care instructions given and explained. Patient alert, oriented and verbalized understanding of instructions. Ambulatory with steady gait. All questions addressed prior to discharge. ID band removed. Patient advised to follow up with PMD. Rx of BENADRYL, IBUPROFEN, ZOFRAN, AND BACTRIM given. Patient educated on indication of medication including possible reaction and side effects. Opportunity to ask questions provided and answered.
== END 2021-05-08 14:03 | disposition home or self-care (01) ==
LOC: MED 12:35
DX: N39.0 Urinary tract infection, site not specified (principal); R11.2 Nausea with vomiting, unspecified; J45.909 Unspecified asthma, uncomplicated; E11.9 Type 2 diabetes mellitus without complications; I10 Essential (primary) hypertension; E03.9 Hypothyroidism, unspecified; E78.5 Hyperlipidemia, unspecified; F12.90 Cannabis use, unspecified, uncomplicated; Z90.49 Acquired absence of other specified parts of digestive tract; Z98.890 Other specified postprocedural states; Z88.0 Allergy status to penicillin; Z88.1 Allergy status to other antibiotic agents; Z79.84 Long term (current) use of oral hypoglycemic drugs; Z79.82 Long term (current) use of aspirin; Z79.899 Other long term (current) drug therapy
CPT/HCPCS: 81002; 81025; 96372; 99283; J1885; Q0162

== ENCOUNTER 2021-05-14 16:57 | Emergency (ER) | payer OTHER ==
[~2021-05-14] VITALS: Ht 167.6 cm; Wt 106.1 kg
[~2021-05-14 16:57] MED LIST changes: +DIPH25TA53 PO; +IBUP-2213 PO; +ONDA8TAB87 PO; +SULF-59 PO
[2021-05-14 17:11] VITALS: BP 117/83
[2021-05-14] MEDS: LIDOCAINE 5% 1 EA PATCH TP STA (17:46)
[2021-05-14] MEDS: ACETAMINOPHEN EXTRA STRENGTH 500 MG TAB PO ONE (17:47)
[2021-05-14] MEDS: HYDROcodone/APAP 5/325 MG 1 TAB TAB PO ONE (17:47)
--- NOTE | 2021-05-14 17:50 | NUR ---
45/F presents to ED with c/o left rib pain since yesterday. Patient states she was pulling up her pants and states "I think I pulled something." Patient reports 10/10 sharp left sided rib pain worsenig with movement, patient states pain is constant. Denies taking anyting at home for pain, denies any other trauma or injury. Denies chest pain, sob or cough.
[2021-05-14] MEDS ORDERED: LID5T TP (18:18)
[2021-05-14] MEDS ORDERED: DICL100G5 TP (18:18)
[2021-05-14] MEDS ORDERED: ACET-8386 PO (18:18)
[2021-05-14] MEDS ORDERED: CEPH-588 PO (18:31)
--- NOTE | 2021-05-14 18:39 | NUR ---
Patient discharged with v/s stable. Written and verbal after care instructions given and explained. Patient alert, oriented and verbalized understanding of instructions. Ambulatory with steady gait. All questions addressed prior to discharge. ID band removed. Patient advised to follow up with PMD. Rx of norco 5-325, keflex, lidoderm patch, and diclofenac given. Patient educated on indication of medication including possible reaction and side effects. Opportunity to ask questions provided and answered.
== END 2021-05-14 18:39 | disposition home or self-care (01) ==
LOC: MED 16:57
DX: S29.011A Strain of muscle and tendon of front wall of thorax, initial encounter (principal); N39.0 Urinary tract infection, site not specified; X58.XXXA Exposure to other specified factors, initial encounter; Y93.89 Activity, other specified; Y92.89 Other specified places as the place of occurrence of the external cause; Y99.8 Other external cause status
CPT/HCPCS: 71101; 81002; 81025; 87086; 99284

== ENCOUNTER 2021-06-05 18:47 | Emergency (ER) | payer OTHER ==
[~2021-06-05] VITALS: Ht 167.6 cm; Wt 105.7 kg
[~2021-06-05 18:47] MED LIST changes: +CEPH-588 PO; +DICL100G5 TP; +LID5T TP
[2021-06-05 19:15] VITALS: BP 134/86
[2021-06-05 20:45] LABS: BASOPHILS # (AUTO) 0.1 K/uL (0.00-0.22); BASOPHILS % (AUTO) 0.4 % (0.0-2.0); EOSINOPHILS # (AUTO) 0.3 K/uL (0-0.4); EOSINOPHILS % (AUTO) 2.2 % (0.0-4.0); HEMATOCRIT 42.9 % (36-48); HEMOGLOBIN 13.7 g/dL (12.0-16.0); LYMPHOCYTES % (AUTO) 22.9 % (20.5-51.1); MEAN CORPUSCULAR HEMOGLOBIN 28 pg (27-31); MEAN CORPUSCULAR HGB CONC 32 g/dL (33-37); MEAN CORPUSCULAR VOLUME 87.7 fL (80-94); MONOCYTES # (AUTO) 0.8 K/uL (0.8-1.0); MONOCYTES % (AUTO) 5.8 % (1.7-9.3); NEUTROPHILS % (AUTO) 68.7 % (42.2-75.2); PLATELET COUNT (AUTO) 238 K/uL (140-450); RED BLOOD CELL COUNT(AUTO) 4.89 MIL/uL (4.20-5.40); RED CELL DISTRIBUTION WIDTH 16.4 % (11.6-13.7); WHITE BLOOD COUNT (AUTO) 13.1 K/uL (4.8-10.8)
[2021-06-05 20:58] LABS: APPEARANCE,URINE SL CLOUDY (CLEAR); BILIRUBIN,URINE NEGATIVE (NEGATIVE); BLOOD, URINE NEGATIVE (NEGATIVE); COLOR,URINE YELLOW (YELLOW); LEUKOCYTE ESTERASE ,URINE 1+ (NEGATIVE); NITRITE, URINE NEGATIVE (NEGATIVE); UGLUCOSE NEGATIVE (NEGATIVE)
[2021-06-05 21:04] LABS: ALBUMIN 3.9 g/dL (3.4-5.0); CARBON DIOXIDE 26.3 mmol/L (21-32); CREATININE 0.9 mg/dL (0.6-1.3); POTASSIUM 4.3 mmol/L (3.5-5.1); TOTAL BILIRUBIN 0.3 mg/dL (0.0-1.0)
[2021-06-05 21:36] LABS: RBC,URINE 0-5 /HPF (0-5)
--- NOTE | 2021-06-06 02:30 | NUR ---
PT LEFT WITHOUT D/C PAPERS OR RX.
== END 2021-06-06 02:30 | disposition home or self-care (01) ==
LOC: MED 18:47
DX: R10.32 Left lower quadrant pain (principal); J45.909 Unspecified asthma, uncomplicated; E11.9 Type 2 diabetes mellitus without complications; I10 Essential (primary) hypertension; E03.9 Hypothyroidism, unspecified; Z79.82 Long term (current) use of aspirin; Z79.84 Long term (current) use of oral hypoglycemic drugs; Z88.0 Allergy status to penicillin; Z88.1 Allergy status to other antibiotic agents; Z79.899 Other long term (current) drug therapy
CPT/HCPCS: 36415; 80053; 81001; 83690; 85025; 87086; 99284

== ENCOUNTER 2021-07-15 16:58 | Emergency (ER) | payer OTHER ==
[~2021-07-15] VITALS: Ht 167.6 cm; Wt 103.9 kg
[~2021-07-15 16:58] MED LIST changes: +ONDA-188 PO; -ONDA-24 PO
[2021-07-15 17:11] VITALS: BP 131/74
--- NOTE | 2021-07-15 17:30 | NUR ---
45/F BIB SELF WITH C/O HIGH BLOOD SUGAR, NAUSEA, VOMITING AND LOW APPETITE. PATIENT STATES SYMPTOMS BEGAN YESTERDAY, WORSENING TODAY, STATING SHE IS FEELING WEAK AND HAS A LOW APPETITE. PATIENT STATES SHE HAS BEEN COMPLIANT WITH DIABETIC MEDICATION BUT STATES HER SUGAR HAS BEEN CONSISTENTLY HIGH SINCE YESTERDAY. DENIES CP, SOB, FEVER OR CHILLS. PATIENT NOT PRESENTING WITH CONFUSION, DRY MOUTH OR FRUITY SMELLING BREATH, ACCUCHECK UPON ARRIVAL READING "TOO HIGH TO READ" DR. MAYO MADE AWARE.
[2021-07-15 17:40] LABS: BASOPHILS # (AUTO) 0.1 K/uL (0.00-0.22); EOSINOPHILS % (AUTO) 0.3 % (0.0-4.0); HEMATOCRIT 42.3 % (36-48); HEMOGLOBIN 13.7 g/dL (12.0-16.0); LYMPHOCYTES # (AUTO) 1.1 K/uL (2.5-16.5); LYMPHOCYTES % (AUTO) 10.7 % (20.5-51.1); MEAN CORPUSCULAR HEMOGLOBIN 29 pg (27-31); MEAN CORPUSCULAR HGB CONC 32 g/dL (33-37); MEAN CORPUSCULAR VOLUME 88.8 fL (80-94); MONOCYTES # (AUTO) 0.4 K/uL (0.8-1.0); MONOCYTES % (AUTO) 3.4 % (1.7-9.3); NEUTROPHILS % (AUTO) 84.6 % (42.2-75.2); PLATELET COUNT (AUTO) 214 K/uL (140-450); RED BLOOD CELL COUNT(AUTO) 4.77 MIL/uL (4.20-5.40); RED CELL DISTRIBUTION WIDTH 16.2 % (11.6-13.7); WHITE BLOOD COUNT (AUTO) 10.6 K/uL (4.8-10.8)
[2021-07-15] MEDS: NACL 0.9% 1,000 ML IV SCH (17:47)
[2021-07-15 17:52] LABS: ALBUMIN 3.7 g/dL (3.4-5.0); ANION GAP 17.6 (8-16); CARBON DIOXIDE 23.5 mmol/L (21-32); CREATININE 1.5 mg/dL (0.6-1.3); POTASSIUM 4.1 mmol/L (3.5-5.1); TOTAL BILIRUBIN 0.4 mg/dL (0.0-1.0)
--- NOTE | 2021-07-15 18:00 | NUR ---
PATIENT AMBULATED TO RESTROOM WITH STEADY GAIT.
[2021-07-15] MEDS: INSULIN REGULAR, HUMAN 100 UNIT/ML VIAL IVP ONE (18:20)
--- NOTE | 2021-07-15 18:30 | NUR ---
PATIENT APPEARS TO BE RESTING WITH EYES CLOSED, ON BEDSIDE PRODUCTION TROUBLESHOOTER. VSS.
[2021-07-15] MEDS ORDERED: IBUP-2213 PO (19:02)
[2021-07-15] MEDS ORDERED: SULF-59 PO (19:02)
[2021-07-15] MEDS ORDERED: ONDA8TAB87 PO (19:02)
[2021-07-15 19:16] VITALS: BP 102/66
--- NOTE | 2021-07-15 19:16 | NUR ---
Patient discharged with v/s stable. Written and verbal after care instructions ABOUT NAUSEA AND VOMITING,UTI AND ABDOMINAL PAIN given and explained. Patient alert, oriented and verbalized understanding of instructions. Ambulatory with steady gait. All questions addressed prior to discharge. ID band removed. Patient advised to follow up with PMD. Rx of ZOFRAN AND BACTRIM given. Patient educated on indication of medication including possible reaction and side effects. Opportunity to ask questions provided and answered.
[2021-07-15 21:11] LABS: APPEARANCE,URINE CLEAR (CLEAR); BILIRUBIN,URINE NEGATIVE (NEGATIVE); BLOOD, URINE NEGATIVE (NEGATIVE); COLOR,URINE YELLOW (YELLOW); LEUKOCYTE ESTERASE ,URINE NEGATIVE (NEGATIVE); NITRITE, URINE NEGATIVE (NEGATIVE); UGLUCOSE 3+ (NEGATIVE)
== END 2021-07-15 19:16 | disposition home or self-care (01) ==
LOC: MED 16:58
DX: N39.0 Urinary tract infection, site not specified (principal); R11.2 Nausea with vomiting, unspecified; J45.909 Unspecified asthma, uncomplicated; E11.9 Type 2 diabetes mellitus without complications; I10 Essential (primary) hypertension; E03.9 Hypothyroidism, unspecified; Z88.0 Allergy status to penicillin; Z88.1 Allergy status to other antibiotic agents; Z90.49 Acquired absence of other specified parts of digestive tract; Z98.890 Other specified postprocedural states; Z79.899 Other long term (current) drug therapy; Z79.82 Long term (current) use of aspirin; Z79.84 Long term (current) use of oral hypoglycemic drugs
CPT/HCPCS: 36415; 36600; 71045; 80053; 81003; 81025; 82803; 83880; 84484; 85025; 87040; 87086; 93005; 96361; 96374; 99285; J1815; J7030; Q0092; 87186

== ENCOUNTER 2021-07-22 21:19 | Emergency (ER) | payer OTHER ==
[~2021-07-22] VITALS: Ht 167.6 cm; Wt 99.8 kg
[2021-07-22 21:38] VITALS: BP 135/76
--- NOTE | 2021-07-22 22:46 | NUR ---
PT AMBULATED TO BED #2
--- NOTE | 2021-07-22 22:50 | NUR ---
SEE COMPELTE ASSESSMENT FOR ADDITIONAL INFORMATION
--- NOTE | 2021-07-22 23:34 | NUR ---
Dr. Ross examining patient.
[2021-07-23] MEDS ORDERED: ONDANSETRON 4 MG/2 ML VIAL IVP ONE (00:05)
[2021-07-23] MEDS ORDERED: ACETAMINOPHEN EXTRA STRENGTH 500 MG TAB PO ONE (00:05)
--- NOTE | 2021-07-23 00:15 | NUR ---
PT TAKEN TO CT.
[2021-07-23 00:17] LABS: BASOPHILS # (AUTO) 0.1 K/uL (0.00-0.22); BASOPHILS % (AUTO) 1.4 % (0.0-2.0); EOSINOPHILS # (AUTO) 0.2 K/uL (0-0.4); EOSINOPHILS % (AUTO) 2.7 % (0.0-4.0); HEMATOCRIT 40.3 % (36-48); HEMOGLOBIN 13.3 g/dL (12.0-16.0); LYMPHOCYTES # (AUTO) 2.1 K/uL (2.5-16.5); LYMPHOCYTES % (AUTO) 26.3 % (20.5-51.1); MEAN CORPUSCULAR HEMOGLOBIN 29 pg (27-31); MEAN CORPUSCULAR HGB CONC 33 g/dL (33-37); MEAN CORPUSCULAR VOLUME 86.1 fL (80-94); MONOCYTES # (AUTO) 0.7 K/uL (0.8-1.0); MONOCYTES % (AUTO) 8.2 % (1.7-9.3); NEUTROPHILS % (AUTO) 61.4 % (42.2-75.2); PLATELET COUNT (AUTO) 219 K/uL (140-450); RED BLOOD CELL COUNT(AUTO) 4.68 MIL/uL (4.20-5.40); RED CELL DISTRIBUTION WIDTH 16.3 % (11.6-13.7); WHITE BLOOD COUNT (AUTO) 8.2 K/uL (4.8-10.8)
[2021-07-23] MEDS ORDERED: ONDANSETRON 4 MG ODT PO ONE (00:25)
[2021-07-23 00:45] LABS: ALBUMIN 3.9 g/dL (3.4-5.0); ANION GAP 13.3 (8-16); CARBON DIOXIDE 27.1 mmol/L (21-32); CREATININE 1.1 mg/dL (0.6-1.3); POTASSIUM 4.4 mmol/L (3.5-5.1); TOTAL BILIRUBIN 0.5 mg/dL (0.0-1.0)
[2021-07-23] MEDS ORDERED: CEPH-588 PO (02:46)
[2021-07-23 03:30] VITALS: BP 135/76
--- NOTE | 2021-07-23 03:35 | NUR ---
The patient's care was reviewed and supervised by Agueda Kinney RN.
== END 2021-07-23 03:30 | disposition home or self-care (01) ==
LOC: MED 21:19
DX: G89.29 Other chronic pain (principal); R10.84 Generalized abdominal pain; J45.909 Unspecified asthma, uncomplicated; E11.9 Type 2 diabetes mellitus without complications; I11.0 Hypertensive heart disease with heart failure; I50.30 Unspecified diastolic (congestive) heart failure; K21.9 Gastro-esophageal reflux disease without esophagitis; Z88.0 Allergy status to penicillin; Z88.1 Allergy status to other antibiotic agents
CPT/HCPCS: 36415; 74176; 80053; 81002; 81025; 83605; 84703; 85025; 99284; Q0162

== ENCOUNTER 2021-09-16 15:47 | Emergency (ER) | payer OTHER ==
[~2021-09-16] VITALS: Ht 167.6 cm; Wt 103.4 kg
[2021-09-16 16:45] VITALS: BP 129/84
--- NOTE | 2021-09-16 16:49 | NUR ---
PT AMBULATED TO ER BED 12 WITH A STEADY GAIT.
[2021-09-16] MEDS ORDERED: KETOROLAC 30 MG/ML VIAL IM ONE (16:55)
--- NOTE | 2021-09-16 17:04 | NUR ---
46 Y/O FEMALE C/O HEADACHE FOR ONE WEEK WORSENING X3DAYS WITH DIZZINESS AND BLURRED VISION. PT REPORTS TAKING EXCEDRIN WITH NO RELIEF. DENIES N/V, DENIES FEVER/CHILLS. PMH: RA, DM, CHOLESTEROL, HTN, HF, HYPOTHYROID, GASTRITIS ALLERGIES: PENICILLINS, LEVOFLOXACIN
--- NOTE | 2021-09-16 17:15 | NUR ---
PT TAKEN TO CT VIA W/C.
--- NOTE | 2021-09-16 17:26 | NUR ---
PT TAKEN TO ER BED 12 VIA W/C.
[2021-09-16] MEDS ORDERED: NAPR-54 PO (18:00)
[2021-09-16 18:06] VITALS: BP 124/80
--- NOTE | 2021-09-16 18:07 | NUR ---
Patient discharged with v/s stable. Written and verbal after care instructions given FOR GEN HEADACHE and explained. Patient alert, oriented and verbalized understanding of instructions. Ambulatory with steady gait. All questions addressed prior to discharge. ID band removed. Patient advised to follow up with PMD. Rx of NAPROXEN given. Patient educated on indication of medication including possible reaction and side effects. Opportunity to ask questions provided and answered.
== END 2021-09-16 18:07 | disposition home or self-care (01) ==
LOC: MED 15:47
DX: R51.9 Headache, unspecified (principal); J45.909 Unspecified asthma, uncomplicated; I11.9 Hypertensive heart disease without heart failure; E11.9 Type 2 diabetes mellitus without complications; F12.10 Cannabis abuse, uncomplicated; Z88.0 Allergy status to penicillin; Z88.1 Allergy status to other antibiotic agents
CPT/HCPCS: 70450; 96372; 99284; J1885

== ENCOUNTER 2021-12-04 16:30 | Emergency (ER) | payer OTHER ==
[~2021-12-04] VITALS: Ht 167.6 cm; Wt 100.2 kg
[~2021-12-04 16:30] MED LIST changes: +NAPR-54 PO
[2021-12-04 16:52] VITALS: BP 131/79
--- NOTE | 2021-12-04 17:12 | NUR ---
Pt ambulated to bed 05 with steady/even gait.
--- NOTE | 2021-12-04 17:37 | NUR ---
TYRONE Alves is evaluating pt at bedside
--- NOTE | 2021-12-04 17:37 | NUR ---
46YO F, KNOWN CASE OF RA, C/O SUDDEN BRUISING OF TOES X 2 DAYS. PATIENT STATES RESTING AT HOME AND NOTICED BRUISING TO 1ST DIGIT OF RIGHT FOOT. PURPLE/BLACK BRUISING NOTED TO ANTERIOR 1ST DIGIT. PATIENT STATES 10/10, SHARP/CONSTANT, NON-RADIATING PAIN. REPORTS CHRONIC BILATERAL LE PAIN D/T HX RHEAUMATOID ARTHRITIS. PT REPORTS CHRONIC 10/10 JOINT PAIN X 1.5 MONTHS. TAKES NORCO 10-325 AND CANNABIS PRIOR TO ARRIVAL WITHOUT RELIEF. PT DENIES CALF PAIN, SOB, DIZZINESS, HEADACHE. BED LOCKED IN LOWEST POSITION, SIDE RAILS X 1. PMH: RHEUMATOID ARTHRITIS, HEART FAILURE, DM, HTN, HLD, THYROID DSE, DIVERTICULITIS MEDS: SEE LIST
--- NOTE | 2021-12-04 17:37 | NUR ---
TYRONE Alves at bedside evaluating patient.
[2021-12-04] MEDS ORDERED: KETOROLAC 30 MG/ML VIAL IM ONE (17:45)
--- NOTE | 2021-12-04 18:01 | NUR ---
Radiology at bedside.
[2021-12-04] MEDS ORDERED: NAPR-54 PO (19:08)
[2021-12-04 19:20] VITALS: BP 128/80
--- NOTE | 2021-12-04 19:20 | NUR ---
Patient discharged with v/s stable. Written and verbal after care instructions given and explained. Patient verbalized understanding. Ambulatory with steady gait. All questions addressed prior to discharge. Advised to follow up with PMD.
== END 2021-12-04 19:20 | disposition home or self-care (01) ==
LOC: MED 16:30
DX: M79.671 Pain in right foot (principal); K21.9 Gastro-esophageal reflux disease without esophagitis; J45.909 Unspecified asthma, uncomplicated; I11.0 Hypertensive heart disease with heart failure; I50.9 Heart failure, unspecified; E07.9 Disorder of thyroid, unspecified; Z90.49 Acquired absence of other specified parts of digestive tract; Z98.890 Other specified postprocedural states; Z88.0 Allergy status to penicillin; Z88.1 Allergy status to other antibiotic agents; Z79.82 Long term (current) use of aspirin; Z79.84 Long term (current) use of oral hypoglycemic drugs; Z79.899 Other long term (current) drug therapy
CPT/HCPCS: 73630; 96372; 99283; J1885; Q0092

== ENCOUNTER 2022-05-09 22:07 | Emergency (ER) | payer OTHER ==
[~2022-05-09] VITALS: Ht 170.2 cm; Wt 127.0 kg
[~2022-05-09 22:07] MED LIST changes: -ACET-8386 PO; +ALBU0.0912 INH; -BEN10 PO; +DAPA5TAB PO; -DICL100G5 TP; -DIPH25TA53 PO; +DULA1.5S SUBQ; +ERTU1TAB3 PO; +ESOM40EC PO; -FOS70 PO; +GABA300C PO; +GEMF-65 PO; +HUM7525 SUBQ; -HYDR200T5 PO; -IBUP-2213 PO; -LACT1.4C PO; +LEVO-481 PO; +LEVO750T75 PO; -LID5T TP; -LISI10TA30 PO; +METF-1274 PO; -METF850T PO; -METR-435 PO; -MEX2.5; -NAPR-1704 PO; -OMEP-278 PO; -ONDA-188 PO; -ONDA4TAB PO; -ONDA8TAB87 PO; -OSC500 PO; -POLY17PD46 PO; -SPIMDI INH; -SULF-59 PO; -TRAM50TA1 PO; -ZYL300 PO
[2022-05-09 22:53] VITALS: BP 129/90
--- NOTE | 2022-05-09 22:55 | NUR ---
TO LOBBY A/W BED AMBULATORY
--- NOTE | 2022-05-09 23:16 | NUR ---
Patient ambulated to bed 7.
--- NOTE | 2022-05-09 23:17 | NUR ---
Patient BIB by family from home. C/O vaginal pain x 3 days. Patient reported, had vaginal pain, redness and slightly swelling, no vaginal bleeding.
[2022-05-09] MEDS ORDERED: diphenhydrAMINE 50 MG/ML VIAL IM ONE (23:30)
[2022-05-09] MEDS ORDERED: predniSONE 20 MG TAB PO ONE (23:30)
--- NOTE | 2022-05-09 23:33 | NUR ---
CENA AT BEDSIDE
--- NOTE | 2022-05-09 23:55 | NUR ---
Dr. Lopes examining patient with LATRELL Prince.
[2022-05-10] MEDS ORDERED: HYDROcodone/APAP 5/325 MG 1 TAB TAB PO ONE (00:05)
[2022-05-10] MEDS ORDERED: FLUCONAZOLE 100 MG TAB PO ONE (00:05)
[2022-05-10] MEDS ORDERED: IBUP-2213 PO (00:10)
[2022-05-10] MEDS ORDERED: CEPH-588 PO (00:10)
[2022-05-10] MEDS ORDERED: TRAM50TA1 PO (00:10)
[2022-05-10 00:12] LABS: APPEARANCE,URINE CLOUDY (CLEAR); BILIRUBIN,URINE NEGATIVE (NEGATIVE); BLOOD, URINE 2+ (NEGATIVE); COLOR,URINE YELLOW (YELLOW); LEUKOCYTE ESTERASE ,URINE 1+ (NEGATIVE); NITRITE, URINE NEGATIVE (NEGATIVE); UGLUCOSE 3+ (NEGATIVE)
[2022-05-10 00:35] VITALS: BP 123/87
--- NOTE | 2022-05-10 00:35 | NUR ---
Patient discharged with v/s stable. Written and verbal after care instructions given and explained. Patient alert, oriented and verbalized understanding of instructions. Ambulatory with steady gait. All questions addressed prior to discharge. ID band removed. Patient advised to follow up with PMD. Rx of Tramadol, Ibuprofen and Keflex given. Patient educated on indication of medication including possible reaction and side effects. Opportunity to ask questions provided and answered.
== END 2022-05-10 00:35 | disposition home or self-care (01) ==
LOC: MED 22:07
DX: N76.2 Acute vulvitis (principal); J45.909 Unspecified asthma, uncomplicated; K21.9 Gastro-esophageal reflux disease without esophagitis; I25.10 Atherosclerotic heart disease of native coronary artery without angina pectoris; I10 Essential (primary) hypertension; E11.9 Type 2 diabetes mellitus without complications; E03.9 Hypothyroidism, unspecified; Z88.0 Allergy status to penicillin; Z88.1 Allergy status to other antibiotic agents
CPT/HCPCS: 81002; 81025; 87086; 99284

== ENCOUNTER 2022-12-12 12:00 | Emergency (ER) | payer OTHER ==
[~2022-12-12] VITALS: Ht 167.6 cm; Wt 103.4 kg
[~2022-12-12 12:00] MED LIST changes: +IBUP-2213 PO; +TRAM-748 PO
[2022-12-12 12:09] VITALS: BP 126/83
--- NOTE | 2022-12-12 12:23 | NUR ---
47 yo/f presents to ED w c/o midsternal chest pain INT 10/10 sharp/pressure x1 day upon sleeping, + sob, int episodes of cough worsening chest pain. denies fevers, n/v/d. vss pmh: diabetes, htn, high chol, chf, rheumatoid arthritis, diverticulosis, gerd, asthma allergies: penicillins, levofloxacin
--- NOTE | 2022-12-12 12:34 | NUR ---
pt desat to 87% placed on 2L nc o2 sat now 100% ermd joel aware.
[2022-12-12] MEDS ORDERED: MORPHINE SULFATE 4 MG/ML SYR IVP ONE (12:40)
[2022-12-12 13:06] LABS: BASOPHILS # (AUTO) 0.3 K/uL (0.00-0.22); EOSINOPHILS # (AUTO) 0.3 K/uL (0-0.4); HEMATOCRIT 35.1 % (36-48); HEMOGLOBIN 11.3 g/dL (12.0-16.0); LYMPHOCYTES # (AUTO) 1.2 K/uL (2.5-16.5); LYMPHOCYTES % (AUTO) 8.8 % (20.5-51.1); MEAN CORPUSCULAR HEMOGLOBIN 26 pg (27-31); MEAN CORPUSCULAR HGB CONC 32 g/dL (33-37); MEAN CORPUSCULAR VOLUME 81.1 fL (80-94); MONOCYTES # (AUTO) 0.6 K/uL (0.8-1.0); MONOCYTES % (AUTO) 4.9 % (1.7-9.3); NEUTROPHILS # (AUTO) 10.9 K/uL (1.8-7.7); NEUTROPHILS % (AUTO) 82.3 % (42.2-75.2); PLATELET COUNT (AUTO) 245 K/uL (140-450); RED BLOOD CELL COUNT(AUTO) 4.33 MIL/uL (4.20-5.40); RED CELL DISTRIBUTION WIDTH 15.7 % (11.6-13.7); WHITE BLOOD COUNT (AUTO) 13.3 K/uL (4.8-10.8)
[2022-12-12 13:21] LABS: CARBON DIOXIDE 26.5 mmol/L (21-32); POTASSIUM 3.5 mmol/L (3.5-5.1)
[2022-12-12] MEDS ORDERED: IPRATROPIUM 0.02% 0.5 MG/2.5 ML NEBU INH ONE (13:50)
[2022-12-12] MEDS ORDERED: ALBUTEROL 0.083% 2.5 MG/3 ML NEBU INH ONE (13:50)
--- NOTE | 2022-12-12 14:10 | NUR ---
pt reports chest pain improved 10/29. vss, on 4 L.
--- NOTE | 2022-12-12 15:40 | NUR ---
Note [email or web address] in EDM - 12/12/22 at 1551 by [id number] pt awake and alert, has not had any ongoing spit up episodes, no symptoms of respiratory deoression, sedation, or seizures, vss, mary kelleyayed pt for discharge at this time.
[2022-12-12] MEDS ORDERED: PRED20TA5 PO (16:06)
--- NOTE | 2022-12-12 16:10 | NUR ---
PT O2 SAT FLUTUATES 89-96% ON ROOM AIR, NO SOB OR CHEST PAIN AT THIS TIME, PT REPORTS SHE USES OXYGEN AT HOME, RADHA MAYO AWARE AND OKAYED PT FOR DC.
[2022-12-12 16:16] VITALS: BP 116/66
== END 2022-12-12 16:16 | disposition home or self-care (01) ==
LOC: MED 12:00
DX: R07.9 Chest pain, unspecified (principal); R09.02 Hypoxemia; J45.909 Unspecified asthma, uncomplicated; I11.0 Hypertensive heart disease with heart failure; I50.9 Heart failure, unspecified; E11.9 Type 2 diabetes mellitus without complications; K21.9 Gastro-esophageal reflux disease without esophagitis; E78.5 Hyperlipidemia, unspecified; Z86.39 Personal history of other endocrine, nutritional and metabolic disease; Z79.899 Other long term (current) drug therapy; Z79.2 Long term (current) use of antibiotics; Z79.1 Long term (current) use of non-steroidal anti-inflammatories (NSAID); Z79.82 Long term (current) use of aspirin; Z79.4 Long term (current) use of insulin; Z88.0 Allergy status to penicillin; Z88.1 Allergy status to other antibiotic agents
CPT/HCPCS: 36415; 71045; 71275; 80048; 83880; 84484; 85025; 93005; 94640; 96374; 99285; J2270; J7613; J7644; Q9967

== ENCOUNTER 2022-12-14 11:23 | Emergency (ER) | payer OTHER ==
[~2022-12-14] VITALS: Ht 167.6 cm; Wt 103.4 kg
[~2022-12-14 11:23] MED LIST changes: +PRED20TA5 PO
[2022-12-14 11:43] VITALS: BP 114/76
--- NOTE | 2022-12-14 12:00 | NUR ---
47/F WALKED IN REFERRED BY PCP FOR BLOOD GAS BLOOD DRAW. PT DENIES ANY COMPLAINTS AT THIS TIME. PT REQUESTING BLOOD GAS DRAWN TO QUALIFY FOR HOME O2 TANK. PMH: CHF, DM, HTN, RA
== END 2022-12-14 12:43 | disposition home or self-care (01) ==
LOC: MED 11:23
DX: I11.0 Hypertensive heart disease with heart failure (principal); I50.9 Heart failure, unspecified; R09.02 Hypoxemia; E11.9 Type 2 diabetes mellitus without complications; J45.909 Unspecified asthma, uncomplicated; K21.9 Gastro-esophageal reflux disease without esophagitis; Z86.39 Personal history of other endocrine, nutritional and metabolic disease; Z90.49 Acquired absence of other specified parts of digestive tract; Z79.899 Other long term (current) drug therapy; Z79.2 Long term (current) use of antibiotics; Z79.891 Long term (current) use of opiate analgesic; Z79.1 Long term (current) use of non-steroidal anti-inflammatories (NSAID); Z79.82 Long term (current) use of aspirin; Z79.4 Long term (current) use of insulin; Z88.0 Allergy status to penicillin; Z88.1 Allergy status to other antibiotic agents
CPT/HCPCS: 99283

== ENCOUNTER 2023-02-14 18:09 | Emergency (ER) | payer OTHER ==
[~2023-02-14] VITALS: Ht 167.6 cm; Wt 105.7 kg
[2023-02-14 18:19] VITALS: BP 126/88
--- NOTE | 2023-02-14 18:21 | NUR ---
47 Y/O FEMALE BIB SELF, PT STATES SHE HAS BEEN HAVING TROUBLE MANAGAING HER GLUCOSE AT HOME FOR 3 WEEKS AND HAS BEEN REPORTING HIGH BS READS. BS CURRENTLY IN TRIAGE IS 493. PT C/O ABD PAIN, BODY ACHES, AND WEAKNESS FOR 1 MO. 9/10 PAIN AT THIS TIME. PMH: DM2, RA ALLERGY: PENICILLIN, LEVOFLOXACIN (HIVES)
[2023-02-14] MEDS ORDERED: NACL 0.9% 1,000 ML IV ONE ×2 (18:25→19:50)
--- NOTE | 2023-02-14 18:35 | NUR ---
ERMD SIN ASSESSING PT IN [facility]
--- NOTE | 2023-02-14 18:38 | NUR ---
LABS DRAWN FROM IV SITE AND GIVEN TO LAB AT THIS TIME
--- NOTE | 2023-02-14 18:39 | NUR ---
URINE SPECIMEN CUP GIVEN
[2023-02-14 18:41] LABS: BASOPHILS % (AUTO) 0.4 % (0.0-2.0); EOSINOPHILS % (AUTO) 0.4 % (0.0-4.0); HEMATOCRIT 38.2 % (36-48); HEMOGLOBIN 12.4 g/dL (12.0-16.0); LYMPHOCYTES # (AUTO) 1.2 K/uL (2.5-16.5); LYMPHOCYTES % (AUTO) 12.7 % (20.5-51.1); MEAN CORPUSCULAR HEMOGLOBIN 25 pg (27-31); MEAN CORPUSCULAR HGB CONC 32 g/dL (33-37); MEAN CORPUSCULAR VOLUME 76.8 fL (80-94); MONOCYTES # (AUTO) 0.3 K/uL (0.8-1.0); MONOCYTES % (AUTO) 3.3 % (1.7-9.3); NEUTROPHILS # (AUTO) 7.7 K/uL (1.8-7.7); NEUTROPHILS % (AUTO) 83.2 % (42.2-75.2); PLATELET COUNT (AUTO) 215 K/uL (140-450); RED BLOOD CELL COUNT(AUTO) 4.97 MIL/uL (4.20-5.40); WHITE BLOOD COUNT (AUTO) 9.3 K/uL (4.8-10.8)
[2023-02-14 18:50] LABS: APPEARANCE,URINE CLEAR (CLEAR); BILIRUBIN,URINE NEGATIVE (NEGATIVE); BLOOD, URINE NEGATIVE (NEGATIVE); COLOR,URINE YELLOW (YELLOW); LEUKOCYTE ESTERASE ,URINE NEGATIVE (NEGATIVE); NITRITE, URINE NEGATIVE (NEGATIVE); UGLUCOSE 3+ (NEGATIVE)
[2023-02-14 18:50] LABS: ACETONE, SERUM NEGATIVE (NEGATIVE)
[2023-02-14 18:56] LABS: ALBUMIN 4.2 g/dL (3.4-5.0); ANION GAP 14.8 (8-16); ASPARTATE AMINOTRANSFERASE 47 U/L (15-37); CARBON DIOXIDE 23.6 mmol/L (21-32); CHLORIDE 99 mmol/L (98-107); GFR ARICAN-AMERICAN 76 mL/min (>90); POTASSIUM 4.4 mmol/L (3.5-5.1); SODIUM SERUM 133 mmol/L (136-145); TOTAL BILIRUBIN 0.7 mg/dL (0.0-1.0); UREA NITROGEN, BLOOD 20 mg/dL (7-18)
[2023-02-14 18:57] LABS: GLUCOSE 522 mg/dL (74-106)
[2023-02-14] MEDS ORDERED: INSULIN REGULAR, HUMAN 100 UNIT/ML VIAL SUBQ ONE ×3 (19:10→21:20)
--- NOTE | 2023-02-14 19:27 | NUR ---
pt to bed 04
--- NOTE | 2023-02-14 19:38 | NUR ---
PATIENT REPORTS GENERALIZED BODY PAIN SECONDARY TO RHEUMATOID ARTHRITIS. ALSO HAS COMPLAINTS OF HEADACHE. MD NOTIFIED
[2023-02-14] MEDS ORDERED: ACETAMINOPHEN EXTRA STRENGTH 500 MG TAB PO ONE (19:40)
[2023-02-14] MEDS ORDERED: ACETAMINOPHEN EXTRA STRENGTH 500 MG TAB ONE (19:44)
--- NOTE | 2023-02-14 20:45 | NUR ---
Note undone in EDM - 02/14/23 at 2309 by [email or web address] Patient discharged with v/s stable. Written and verbal after care instructions given and explained. Patient alert, oriented and verbalized understanding of instructions. Ambulatory with steady gait. All questions addressed prior to discharge. ID band removed. Patient advised to follow up with PMD. Rx of TRULICITY AND STEGLATRO given. Patient educated on indication of medication including possible reaction and side effects. Opportunity to ask questions provided and answered. DX: DIABETES MELLITUS AND NUTRITION, ADULT
[2023-02-14] MEDS ORDERED: DULA1.5S SC (21:33)
[2023-02-14] MEDS ORDERED: ERTU15TA PO (21:33)
--- NOTE | 2023-02-14 22:45 | NUR ---
Patient discharged with v/s stable. Written and verbal after care instructions given and explained. Patient alert, oriented and verbalized understanding of instructions. Ambulatory with steady gait. All questions addressed prior to discharge. ID band removed. Patient advised to follow up with PMD. Rx of TRULICITY AND STEGLATRO given. Patient educated on indication of medication including possible reaction and side effects. Opportunity to ask questions provided and answered. DX: DIABETES MELLITUS AND NUTRITION, ADULT
== END 2023-02-14 20:45 | disposition home or self-care (01) ==
LOC: MED 18:09
DX: E11.65 Type 2 diabetes mellitus with hyperglycemia (principal); I11.0 Hypertensive heart disease with heart failure; J45.909 Unspecified asthma, uncomplicated; M06.8A Other specified rheumatoid arthritis, other specified site; K21.9 Gastro-esophageal reflux disease without esophagitis; E03.9 Hypothyroidism, unspecified; N18.9 Chronic kidney disease, unspecified; Z88.8 Allergy status to other drugs, medicaments and biological substances; Z88.0 Allergy status to penicillin; Z79.4 Long term (current) use of insulin; Z79.899 Other long term (current) drug therapy; Z90.49 Acquired absence of other specified parts of digestive tract; Z98.890 Other specified postprocedural states
CPT/HCPCS: 36415; 71045; 80053; 81003; 82009; 82803; 83690; 83880; 84484; 85025; 93005; 96360; 96361; 96372; 99285; J1815; J7030

== ENCOUNTER 2023-05-05 16:49 | Inpatient (IN) | payer OTHER ==
[~2023-05-05] VITALS: Ht 167.6 cm; Wt 103.4 kg
[~2023-05-05 16:49] MED LIST changes: +DULA1.5S SC; +ERTU15TA PO
[2023-05-05 17:15] VITALS: BP 121/64; PULSE 121; RESP 20; TEMP 97.3; O2SAT 91
[2023-05-05] MEDS ORDERED: KETOROLAC 30 MG/ML VIAL IM ONE (17:50)
[2023-05-05] MEDS ORDERED: PROCHLORPERAZINE 10 MG/2 ML VIAL IM ONE (17:50)
[2023-05-05] MEDS ORDERED: IBUP-2213 PO (20:20)
[2023-05-05] MEDS ORDERED: NACL 0.9% 1,000 ML IV ONE ×2 (20:25→22:50)
[2023-05-05] MEDS ORDERED: MORPHINE SULFATE 4 MG/ML SYR IM ONE (20:25)
[2023-05-05 21:16] LABS: BASOPHILS % (AUTO) 0.1 % (0.0-2.0); EOSINOPHILS # (AUTO) 0.2 K/uL (0-0.4); EOSINOPHILS % (AUTO) 2.1 % (0.0-4.0); HEMATOCRIT 36.3 % (36-48); HEMOGLOBIN 11.7 g/dL (12.0-16.0); LYMPHOCYTES # (AUTO) 1.7 K/uL (2.5-16.5); LYMPHOCYTES % (AUTO) 19.1 % (20.5-51.1); MEAN CORPUSCULAR HEMOGLOBIN 25 pg (27-31); MEAN CORPUSCULAR HGB CONC 32 g/dL (33-37); MEAN CORPUSCULAR VOLUME 78.4 fL (80-94); MONOCYTES # (AUTO) 0.7 K/uL (0.8-1.0); MONOCYTES % (AUTO) 7.5 % (1.7-9.3); NEUTROPHILS # (AUTO) 6.5 K/uL (1.8-7.7); NEUTROPHILS % (AUTO) 71.2 % (42.2-75.2); PLATELET COUNT (AUTO) 157 K/uL (140-450); RED BLOOD CELL COUNT(AUTO) 4.63 MIL/uL (4.20-5.40); RED CELL DISTRIBUTION WIDTH 17.1 % (11.6-13.7); WHITE BLOOD COUNT (AUTO) 9.1 K/uL (4.8-10.8)
[2023-05-05 21:36] VITALS: O2SAT 95
[2023-05-05 22:05] LABS: ALANINE AMINOTRANSFERASE 87 U/L (12-78); ALBUMIN 3.6 g/dL (3.4-5.0); ALKALINE PHOSPHATASE 114 U/L (50-136); ANION GAP 15.5 (8-16); ASPARTATE AMINOTRANSFERASE 42 U/L (15-37); CALCIUM 8.6 mg/dL (8.5-10.1); CARBON DIOXIDE 25.2 mmol/L (21-32); CHLORIDE 96 mmol/L (98-107); CREATININE 1.3 mg/dL (0.6-1.3); GFR ARICAN-AMERICAN 56 mL/min (>90); GFR NON ARICAN-AMERICAN 47 mL/min (>90); POTASSIUM 3.7 mmol/L (3.5-5.1); SODIUM SERUM 133 mmol/L (136-145); TOTAL BILIRUBIN 0.5 mg/dL (0.0-1.0); TOTAL PROTEIN, SERUM 6.3 g/dL (6.4-8.2); UREA NITROGEN, BLOOD 20 mg/dL (7-18)
[2023-05-05 22:10] LABS: GLUCOSE 473 mg/dL (74-106)
[2023-05-05 23:50] VITALS: O2SAT 95
[2023-05-05] MEDS ORDERED: HYDROcodone/APAP 5/325 MG 1 TAB TAB PO PRN (23:50)
[2023-05-05] MEDS ORDERED: DEXTROSE 50% 50 ML SYR IVP PRN (23:50)
[2023-05-05] MEDS ORDERED: KCL 20 MEQ IN 100 mL PREMIX 200 ML IV PRN (23:50)
[2023-05-05] MEDS ORDERED: MAG SULF 2000 MG/WATER PREMIX 50 ML IV PRN (23:50)
[2023-05-05] MEDS ORDERED: POTASSIUM CHLORIDE 10 MEQ TABER PO PRN (23:50)
[2023-05-05] MEDS ORDERED: MORPHINE SULFATE 4 MG/ML SYR IVP PRN (23:50)
[2023-05-05] MEDS ORDERED: ACETAMINOPHEN 325 MG TAB PO PRN (23:50)
[2023-05-05] MEDS ORDERED: MAGNESIUM OXIDE 400 MG TAB PO PRN (23:50)
[2023-05-05] MEDS ORDERED: ONDANSETRON 4 MG/2 ML VIAL IVP PRN (23:50)
[2023-05-06] VITALS (7 sets, daily range): BP systolic 121–150; BP diastolic 71–75; PULSE 66–86; RESP 14–18; TEMP 97–98; O2SAT 94–99
[2023-05-06 00:42] LABS: BLOOD GAS PH 7.355 (7.35-7.45); BLOOD GAS PO2 60.7 mmHg (75-100)
[2023-05-06 00:43] LABS: BLOOD GAS BASE EXCESS -4.8 mmol/L (-2.0-2.0); BLOOD GAS HCO3 20.2 mmol/L (22-26); BLOOD GAS O2 SAT% 90.4 % (92.0-98.5)
[2023-05-06] MEDS: NACL 0.9% 1,000 ML IV SCH ×2 (00:45→12:34)
[2023-05-06] MEDS: BLOOD GLUCOSE MONITORING 1 DEV DEV FS SCH ×4 (06:57→15:42)
[2023-05-06] MEDS: INSULIN LISPRO SLIDING SCALE 100 UNITS/ML VIAL SUBQ PRN ×3 (08:10→15:46)
[2023-05-06 08:58] LABS: BASOPHILS # (AUTO) 0.3 K/uL (0.00-0.22); BASOPHILS % (AUTO) 4.1 % (0.0-2.0); EOSINOPHILS # (AUTO) 0.3 K/uL (0-0.4); EOSINOPHILS % (AUTO) 4.6 % (0.0-4.0); HEMATOCRIT 35.6 % (36-48); HEMOGLOBIN 11.3 g/dL (12.0-16.0); LYMPHOCYTES # (AUTO) 1.9 K/uL (2.5-16.5); LYMPHOCYTES % (AUTO) 29.3 % (20.5-51.1); MEAN CORPUSCULAR HEMOGLOBIN 25 pg (27-31); MEAN CORPUSCULAR HGB CONC 32 g/dL (33-37); MEAN CORPUSCULAR VOLUME 79.8 fL (80-94); MONOCYTES # (AUTO) 0.5 K/uL (0.8-1.0); MONOCYTES % (AUTO) 7.4 % (1.7-9.3); NEUTROPHILS # (AUTO) 3.6 K/uL (1.8-7.7); NEUTROPHILS % (AUTO) 54.6 % (42.2-75.2); PLATELET COUNT (AUTO) 141 K/uL (140-450); RED BLOOD CELL COUNT(AUTO) 4.46 MIL/uL (4.20-5.40); WHITE BLOOD COUNT (AUTO) 6.5 K/uL (4.8-10.8)
[2023-05-06] MEDS ORDERED: DOCUSATE SODIUM 100 MG GELCAP PO SCH (09:00)
[2023-05-06 09:15] LABS: ANION GAP 9.5 (8-16); CARBON DIOXIDE 27.3 mmol/L (21-32); POTASSIUM 3.8 mmol/L (3.5-5.1)
[2023-05-06 09:34] LABS: MAGNESIUM 1.5 mg/dL (1.8-2.4); PHOSPHORUS 3.5 mg/dL (2.5-4.9)
[2023-05-06] MEDS ORDERED: INSULIN LANTUS 100 UNITS/ML 10 ML VIAL SUBQ SCH (13:15)
== END 2023-05-06 16:30 | disposition left against medical advice (07) | DRG 54 ==
LOC: MED 16:49 → OBSVTOIN 23:54 → MTU 23:54
PROVIDERS: ADMIT Internal Medicine; ATTEND Internal Medicine
DX: G43.909 Migraine, unspecified, not intractable, without status migrainosus (principal); D64.9 Anemia, unspecified; E78.5 Hyperlipidemia, unspecified; H40.9 Unspecified glaucoma; E11.65 Type 2 diabetes mellitus with hyperglycemia; Z20.822 Contact with and (suspected) exposure to COVID-19; I10 Essential (primary) hypertension; M06.9 Rheumatoid arthritis, unspecified; K29.70 Gastritis, unspecified, without bleeding; R00.0 Tachycardia, unspecified
CPT/HCPCS: 36415; 36600; 70450; 71045; 80048; 80053; 82803; 82948; 83036; 83735; 83880; 84100; 84484; 85025; 85379; 87081; 96360; 96361; 96372; 99285; J0780; J1644; J1815; J1885; J2270; J7030; Q0092; Q0163

== ENCOUNTER 2023-06-06 20:15 | Emergency (ER) | payer OTHER ==
[~2023-06-06] VITALS: Ht 167.6 cm; Wt 103.4 kg
[2023-06-06 20:59] VITALS: BP 101/67; PULSE 108; RESP 16; TEMP 97.6; O2SAT 100
[2023-06-06 21:25] VITALS: TEMP 97.6
[2023-06-06] MEDS ORDERED: ALBUTEROL SULFATE/IPRATROPIU 3 ML SOL IH ONE (21:30)
[2023-06-06] MEDS ORDERED: predniSONE 20 MG TAB PO ONE (21:30)
[2023-06-06] MEDS ORDERED: KETOROLAC 60 MG/2 ML VIAL IM ONE (21:30)
[2023-06-06] MEDS ORDERED: ALBUTEROL 0.083% 2.5 MG/3 ML NEBU INH ONE (21:30)
[2023-06-06 21:31] VITALS: PULSE 100; RESP 30; O2SAT 100
[2023-06-06 21:33] VITALS: PULSE 100; RESP 30; O2SAT 100
[2023-06-06] MEDS ORDERED: predniSONE 20 MG TAB ONE (21:47)
[2023-06-06] MEDS ORDERED: MORPHINE SULFATE 4 MG/ML SYR IVP ONE (22:35)
[2023-06-06] MEDS ORDERED: ONDANSETRON 4 MG/2 ML VIAL IVP ONE (22:35)
[2023-06-06 22:50] LABS: BASOPHILS # (AUTO) 0.2 K/uL (0.00-0.22); BASOPHILS % (AUTO) 2.9 % (0.0-2.0); EOSINOPHILS # (AUTO) 0.1 K/uL (0-0.4); EOSINOPHILS % (AUTO) 1.3 % (0.0-4.0); HEMATOCRIT 37.9 % (36-48); HEMOGLOBIN 12.3 g/dL (12.0-16.0); LYMPHOCYTES # (AUTO) 2.6 K/uL (2.5-16.5); LYMPHOCYTES % (AUTO) 31.9 % (20.5-51.1); MEAN CORPUSCULAR HEMOGLOBIN 26 pg (27-31); MEAN CORPUSCULAR HGB CONC 32 g/dL (33-37); MEAN CORPUSCULAR VOLUME 79.1 fL (80-94); MONOCYTES # (AUTO) 0.4 K/uL (0.8-1.0); MONOCYTES % (AUTO) 5.4 % (1.7-9.3); NEUTROPHILS # (AUTO) 4.8 K/uL (1.8-7.7); NEUTROPHILS % (AUTO) 58.5 % (42.2-75.2); PLATELET COUNT (AUTO) 165 K/uL (140-450); RED BLOOD CELL COUNT(AUTO) 4.79 MIL/uL (4.20-5.40); RED CELL DISTRIBUTION WIDTH 16.6 % (11.6-13.7); WHITE BLOOD COUNT (AUTO) 8.2 K/uL (4.8-10.8)
[2023-06-06 23:13] LABS: ANION GAP 19.1 (8-16); CALCIUM 9.5 mg/dL (8.5-10.1); CARBON DIOXIDE 19.4 mmol/L (21-32); CREATININE 1.3 mg/dL (0.6-1.3); POTASSIUM 3.5 mmol/L (3.5-5.1); TOTAL BILIRUBIN 0.7 mg/dL (0.0-1.0); TOTAL PROTEIN, SERUM 6.6 g/dL (6.4-8.2)
[2023-06-06 23:15] LABS: APPEARANCE,URINE SL CLOUDY (CLEAR); BILIRUBIN,URINE NEGATIVE (NEGATIVE); BLOOD, URINE NEGATIVE (NEGATIVE); COLOR,URINE YELLOW (YELLOW); LEUKOCYTE ESTERASE ,URINE 1+ (NEGATIVE); NITRITE, URINE NEGATIVE (NEGATIVE); PROTEIN,URINE NEGATIVE (NEGATIVE); UGLUCOSE 3+ (NEGATIVE)
[2023-06-06 23:18] LABS: BACTERIA,URINE >30 (MANY) /HPF (None Seen); MUCUS,URINE 1+ /LPF (None Seen); RBC,URINE 0-5 /HPF (0-5); SQUAMOUS EPITHELIAL CELL,UR 4-10 (MOD) /LPF (0-3 (FEW))
[2023-06-06] MEDS ORDERED: NACL 0.9% 1,000 ML IV ONE (23:55)
[2023-06-07 00:19] LABS: BLOOD GAS BASE EXCESS -3.9 mmol/L (-2.0-2.0); BLOOD GAS O2 SAT% 89.1 % (92.0-98.5); BLOOD GAS PCO2 24.6 mmHg (35-45); BLOOD GAS PH 7.482 (7.35-7.45); BLOOD GAS PO2 50.4 mmHg (75-100)
[2023-06-07] MEDS ORDERED: diphenhydrAMINE 50 MG/ML VIAL IVP ONE (01:40)
[2023-06-07] MEDS ORDERED: MORPHINE SULFATE 4 MG/ML SYR IVP ONE (01:40)
[2023-06-07] MEDS ORDERED: NITR100C7 PO ×2 (03:30→04:38)
[2023-06-07] MEDS ORDERED: NAPR-54 PO ×2 (03:30→04:38)
[2023-06-07 04:00] VITALS: BP 113/75; PULSE 104; RESP 13; O2SAT 95
[2023-06-07] MEDS ORDERED: MAG-27 PO (04:38)
== END 2023-06-07 04:00 | disposition home or self-care (01) ==
LOC: MED 20:15
DX: N39.0 Urinary tract infection, site not specified (principal); E03.9 Hypothyroidism, unspecified; J45.909 Unspecified asthma, uncomplicated; K21.9 Gastro-esophageal reflux disease without esophagitis; I13.10 Hypertensive heart and chronic kidney disease without heart failure, with stage 1 through stage 4 chronic kidney disease, or unspecified chronic kidney disease; E11.22 Type 2 diabetes mellitus with diabetic chronic kidney disease; N18.9 Chronic kidney disease, unspecified; Z79.4 Long term (current) use of insulin; Z79.899 Other long term (current) drug therapy
CPT/HCPCS: 36415; 36600; 74176; 80053; 81001; 81025; 82803; 82948; 83690; 85025; 87086; 94640; 96361; 96372; 96374; 96375; 96376; 99285; J1200; J1885; J2270; J2405; J7512; J7613

== ENCOUNTER 2023-10-10 17:14 | Emergency (ER) | payer OTHER ==
[~2023-10-10] VITALS: Ht 167.6 cm; Wt 81.6 kg
[~2023-10-10 17:14] MED LIST changes: +MAG-27 PO; +NITR100C7 PO
[2023-10-10 17:54] VITALS: BP 113/87; PULSE 92; RESP 18; TEMP 97.3; O2SAT 98
[2023-10-10 19:14] LABS: BASOPHILS # (AUTO) 0.2 K/uL (0.00-0.22); EOSINOPHILS # (AUTO) 0.1 K/uL (0-0.4); EOSINOPHILS % (AUTO) 0.9 % (0.0-4.0); HEMATOCRIT 41.2 % (36-48); HEMOGLOBIN 13.5 g/dL (12.0-16.0); LYMPHOCYTES # (AUTO) 1.7 K/uL (2.5-16.5); LYMPHOCYTES % (AUTO) 15.1 % (20.5-51.1); MEAN CORPUSCULAR HEMOGLOBIN 27 pg (27-31); MEAN CORPUSCULAR HGB CONC 33 g/dL (33-37); MONOCYTES # (AUTO) 0.4 K/uL (0.8-1.0); MONOCYTES % (AUTO) 3.6 % (1.7-9.3); NEUTROPHILS % (AUTO) 78.4 % (42.2-75.2); PLATELET COUNT (AUTO) 201 K/uL (140-450); RED BLOOD CELL COUNT(AUTO) 5.09 MIL/uL (4.20-5.40); RED CELL DISTRIBUTION WIDTH 16.9 % (11.6-13.7); WHITE BLOOD COUNT (AUTO) 11.5 K/uL (4.8-10.8)
[2023-10-10 19:22] LABS: ALBUMIN 4.1 g/dL (3.4-5.0); BILIRUBIN,DIRECT 0.1 mg/dL (0.0-0.3); TOTAL BILIRUBIN 0.4 mg/dL (0.0-1.0); TOTAL PROTEIN, SERUM 8.2 g/dL (6.4-8.2)
[2023-10-10 19:23] LABS: ANION GAP 13.5 (8-16); CALCIUM 9.3 mg/dL (8.5-10.1); CARBON DIOXIDE 26.4 mmol/L (21-32); CREATININE 1.1 mg/dL (0.6-1.3); POTASSIUM 3.9 mmol/L (3.5-5.1)
[2023-10-10 19:31] LABS: APPEARANCE,URINE SL CLOUDY (CLEAR); BILIRUBIN,URINE NEGATIVE (NEGATIVE); BLOOD, URINE TRACE-I (NEGATIVE); COLOR,URINE YELLOW (YELLOW); LEUKOCYTE ESTERASE ,URINE NEGATIVE (NEGATIVE); NITRITE, URINE NEGATIVE (NEGATIVE); PROTEIN,URINE NEGATIVE (NEGATIVE); UGLUCOSE 3+ (NEGATIVE)
[2023-10-10] MEDS ORDERED: OMEP40EC23 PO (20:13)
[2023-10-10] MEDS: ALUMINUM HYD/MAG/SIMETHICONE 30 ML UDC PO ONE (20:14)
[2023-10-10] MEDS: FAMOTIDINE 20 MG TAB PO ONE (20:14)
== END 2023-10-10 21:30 | disposition home or self-care (01) ==
LOC: MED 17:14
DX: R10.13 Epigastric pain (principal); J45.909 Unspecified asthma, uncomplicated; E11.22 Type 2 diabetes mellitus with diabetic chronic kidney disease; I13.0 Hypertensive heart and chronic kidney disease with heart failure and stage 1 through stage 4 chronic kidney disease, or unspecified chronic kidney disease; N18.9 Chronic kidney disease, unspecified; I50.9 Heart failure, unspecified; K21.9 Gastro-esophageal reflux disease without esophagitis; M06.9 Rheumatoid arthritis, unspecified; Z86.39 Personal history of other endocrine, nutritional and metabolic disease; Z90.49 Acquired absence of other specified parts of digestive tract; Z79.899 Other long term (current) drug therapy; Z79.1 Long term (current) use of non-steroidal anti-inflammatories (NSAID); Z79.2 Long term (current) use of antibiotics; Z79.82 Long term (current) use of aspirin; Z79.4 Long term (current) use of insulin; Z88.0 Allergy status to penicillin; Z88.1 Allergy status to other antibiotic agents
CPT/HCPCS: 36415; 80048; 80076; 81003; 81025; 83690; 84703; 85025; 99284